=== PATIENT | male | born 1965 | race Caucasian/White ===

== ENCOUNTER 2018-12-07 18:14 | Emergency (ER) | payer MEDICARE ==
[~2018-12-07] VITALS: Ht 182.9 cm; Wt 96.2 kg
[2018-12-07] MEDS ORDERED: HYDROCODONE/APAP 10MG-325MG TAB PO NR (18:45)
[2018-12-07 19:42] LABS: BILIRUBIN,URINE NEGATIVE (NEGATIVE); CLARITY,URINE SL CLOUDY (CLEAR); COLOR,URINE YELLOW (YELLOW); KETONES,URINE NEGATIVE (NEGATIVE); LEUKOCYTE ESTERASE ,URINE NEGATIVE (NEGATIVE); NITRITE,URINE NEGATIVE (NEGATIVE); PROTEIN,URINE DIPSTICK NEGATIVE (NEGATIVE); URINE UROBILINOGEN 1 mg/dL (0.2 - 1)
[2018-12-07 19:45] LABS: AMPHETAMINES SCREEN,URINE NEGATIVE (NEGATIVE); BENZODIAZEPINES SCREEN,URINE POSITIVE (NEGATIVE); PHENCYCLIDINE SCREEN,URINE NEGATIVE (NEGATIVE)
[2018-12-07 19:54] LABS: EPITHELIAL CELLS,URINE RARE /LPF
--- NOTE | 2018-12-07 19:57 | Diagnostic Imaging Report ---
EXAMINATION: Head and cervical spine CT without contrast. HISTORY: Status post fall, head trauma, see, neck numbness, abrasion to 4 head COMPARISON: None. TECHNIQUE: Multidetector axial images were obtained without contrast from the foramen magnum to the vertex and through the cervical spine. The images were reconstructed using brain and bone algorithms. Thin section brain images were reformatted into coronal and sagittal planes. Dose modulation, iterative reconstruction, and/or weight based adjustment of the mA/kV was utilized to reduce the radiation dose to as low as reasonably achievable. HEAD CT FINDINGS: Skull/difficult/: No lytic or blastic lesions. No fractures. Parenchyma: Normal. No mass, hemorrhage or CT evidence of acute vascular insult. Brain volume: Normal for age. Ventricles: No hydrocephalus or displacement. Arteries: No density suggestive of thrombus. Dural sinuses: No abnormal density. Extra-axial spaces: No abnormal density. Foramen magnum: No mass, Chiari malformation, or basilar invagination. Sella: No obvious mass. Paranasal/mastoid sinuses: Imaged portions unremarkable. CERVICAL SPINE CT FINDINGS: Alignment:Normal alignment and lordosis. Soft tissues: Normal. Vertebrae: Normal height and density. No acute fracture, infection or neoplasm. Degenerative changes: C1-C2: Normal C2-C3: Congenital fusion of the vertebral bodies and posterior elements. No stenoses. C3-C4: Asymmetric left disc osteophyte complex formation, uncovertebral and facet arthrosis. Moderate left foraminal stenosis. C4-C5: Disc osteophyte complex formation, bilateral uncovertebral and facet arthrosis. Mild spinal canal and moderately severe bilateral foraminal stenosis. C5-C6: Mild uncovertebral arthrosis. Mild left foraminal stenosis. C6-C7: Uncovertebral arthrosis. No stenoses C7-T1: Normal IMPRESSION: Head CT: No intracranial abnormality, particularly no posttraumatic hemorrhage. Cervical spine CT: 1. No acute fractures or dislocations. 2. Chronic degenerative changes as described. Note: Acute post traumatic spinal cord, vascular or ligamentous injury cannot adequately be assessed with CT. Signed by: Dr. Ilana Diaz M.D. on 12/07/2018 7:54 PM
--- NOTE | 2018-12-07 20:28 | Diagnostic Imaging Report ---
RIGHT FEMORAL X-RAY - 2 VIEWS HISTORY: ^fall COMPARISON: None available. FINDINGS: Bones: No acute displaced fracture. Partially visualized intramedullary sherly in the proximal tibia. Osseous alignment is within normal limits. Joints: The joint spaces are well-maintained. Soft tissues: The soft tissues appear unremarkable. IMPRESSION: No acute radiographic abnormality. Signed by: Dr. Filomena Price M.D. on 12/07/2018 8:25 PM
--- NOTE | 2018-12-07 20:28 | Diagnostic Imaging Report ---
PELVIS X-RAY - 1 VIEW HISTORY: ^fall ^[id number] ^1919 COMPARISON: None available. FINDINGS: Bones: No acute displaced fracture. Osseous alignment is within normal limits. Joints: The joint spaces are well-maintained. Soft tissues: The soft tissues appear unremarkable. IMPRESSION: No acute radiographic abnormality. Signed by: Dr. Filomena Price M.D. on 12/07/2018 8:24 PM
--- NOTE | 2018-12-07 20:29 | Diagnostic Imaging Report ---
RIGHT LOWER EXTREMITY X-RAY - 2 VIEWS HISTORY: ^fall ^[id number] ^1919 COMPARISON: None available. FINDINGS: Bones: No acute displaced fracture. Status post fixation of the tibia with intramedullary sherly for a remote healed fracture of the distal tibia. Hardware is intact without loosening. Osseous alignment is within normal limits. Joints: The joint spaces are well-maintained. Soft tissues: The soft tissues appear unremarkable. IMPRESSION: No acute radiographic abnormality. Status post ORIF of the right tibia. Hardware is intact. Signed by: Dr. Filomena Price M.D. on 12/07/2018 8:26 PM
--- NOTE | 2018-12-07 20:30 | Diagnostic Imaging Report ---
RIGHT FOOT X-RAY - 3 VIEWS HISTORY: ^fall ^[id number] ^1919 COMPARISON: None available. FINDINGS: Bones: Cortical lucency within the posterior aspect of the distal tibia not well seen on tibia fibula x-ray appears to be chronic. Partially visualized intramedullary sherly in the distal tibia. No fractures in the foot. Osseous alignment is within normal limits. Joints: The joint spaces are well-maintained. Soft tissues: The soft tissues appear unremarkable. IMPRESSION: No acute radiographic abnormality. Cortical lucency within the distal posterior tibia appears to be chronic. Signed by: Dr. Filomena Price M.D. on 12/07/2018 8:27 PM
[2018-12-07 23:35] VITALS: BP 136/72
== END 2018-12-07 20:30 | disposition home or self-care (01) ==
LOC: ER 18:14
DX: M54.5 Low back pain (principal); S33.5XXA Sprain of ligaments of lumbar spine, initial encounter; S00.83XA Contusion of other part of head, initial encounter; M54.2 Cervicalgia; M79.604 Pain in right leg; W01.0XXA Fall on same level from slipping, tripping and stumbling without subsequent striking against object, initial encounter; F14.14 Cocaine abuse with cocaine-induced mood disorder; F13.14 Sedative, hypnotic or anxiolytic abuse with sedative, hypnotic or anxiolytic-induced mood disorder
CPT/HCPCS: 70450; 72125; 72170; 80307; 81001; 99283

== ENCOUNTER 2019-12-11 21:22 | Inpatient (IN) | payer MEDICARE, OTHER ==
[~2019-12-11] VITALS: Ht 182.9 cm; Wt 96.2 kg
[2019-12-11] MEDS ORDERED: LEVOFLOXACIN 750MG/D5W 150ML 150 ML IV STA (21:28)
[2019-12-11] MEDS ORDERED: SODIUM CHLORIDE 0.9% 1000ML 1,000 ML IV STA (21:28)
[2019-12-11] MEDS ORDERED: KETOROLAC TROMETHAMINE 30 MG/ML VIAL IV STA (21:28)
--- NOTE | 2019-12-11 21:44 | Emergency Department Note ---
History of Present Illnes History of Present Illness Chief Complaint: Abdominal Complaints History of Present Illness This is a 54 year old male arrives to the ED with left lower quadrant abdominal pain, states his mother has diverticulitis and he has contracted it as well. Historian: Patient Onset (how long ago): day(s) Radiation: Reports non-radiation Duration (how long): day(s) Timing of current episode: intermittent Progression: waxing and waning Chronicity: new Relieving factors: none Past Medical/Family History Physician Review I have reviewed the patient's past medical and family history. Any updates have been documented here. Past Medical History Recent Fever: No Clinical Suspicion of Infectio: No New/Unexplained Change in Ment: No Past Medical History: Hypertension, Anxiety, Depression Other Medical History: NEUROPATHY Other Last Tetanus: UNKNOWN Review of Systems Review of Systems Constitutional: Reports no symptoms EENTM: Reports no symptoms Cardiovascular: Reports no symptoms Respiratory: Reports no symptoms Gastrointestinal: Reports as per HPI, Reports abdominal pain, Reports nausea; Denies constipation, Denies diarrhea, Denies vomiting Genitourinary: Reports no symptoms Musculoskeletal: Reports no symptoms Integumentary: Reports no symptoms Neurological: Reports no symptoms Psychological: Reports no symptoms Endocrine: Reports no symptoms Hematological/Lymphatic: Reports no symptoms Physical Exam Related Data Allergies: Coded Allergies: No Known Allergies (Unverified , 12/07/18) Triage Vital Signs Vital Signs Date Time Temp Pulse Resp B/P (MAP) Pulse Ox O2 Delivery O2 Flow Rate FiO2 12/11/19 21:25 99.0 76 20 99 Room Air Vital signs reviewed: Yes Physical Exam CONSTITUTIONAL Constitutional: Present well-developed, Present well-nourished HENT HENT: Present normocephalic, Present atraumatic, Present oropharynx clear/moist, Present nose normal HENT L/R: Present left ext ear normal, Present right ext ear normal EYES Eyes: Reports PERRL, Reports conjunctivae normal NECK Neck: Present ROM normal PULMONARY Pulmonary: Present effort normal, Present breath sounds normal CARDIOVASCULAR Cardiovascular: Present regular rhythm, Present heart sounds normal, Present capillary refill normal, Present normal rate GASTROINTESTINAL Abdominal: Present soft, Present bowel sounds normal, Present tender GENITOURINARY Genitourinary: Present exam deferred SKIN Skin: Present warm, Present dry MUSCULOSKELETAL Musculoskeletal: Present ROM normal NEUROLOGICAL Neurological: Present alert, Present oriented x 3, Present no gross motor or sensory deficits PSYCHOLOGICAL Psychological: Present mood/affect normal, Present judgement normal Results Laboratory Lab results reviewed: Yes Imaging Imaging results reviewed: Yes Assessment & Plan Medical Decision Making MDM 54-year-old male arrives to the ED with left lower quadrant abdominal pain for lab work was unremarkable given patient's continued pain a CT scan was done which was concerning for diverticulitis with a small adjacent abscess. Patient was given Zosyn the ED and admitted with GI/surgical consult to be done by primary medicine team. Assessment & Plan Final Impression: (1) Abdominal pain (2) Diverticulitis Depart Disposition: HOME, SELF-CARE Last Vital Signs Date Time Temp Pulse Resp B/P (MAP) Pulse Ox O2 Delivery O2 Flow Rate FiO2 12/11/19 21:25 99.0 76 20 99 Room Air Home Meds Reported Medications Fluticasone/Umeclidin/Vilanter (Trelegy Ellipta 100-62.5-25) 1 Each Blst.w.dev, 1 INH INH DAILY 12/12/19 Atorvastatin Calcium (ATORVASTATIN CALCIUM) 20 Mg Tablet, 20 MG PO HS 12/12/19 Clonazepam (CLONAZEPAM) 2 Mg Tablet, 2 MG PO DAILY 12/12/19 Sertraline Hcl (SERTRALINE HCL) 50 Mg Tablet, 50 MG PO DAILY 12/12/19 Losartan Potassium (LOSARTAN POTASSIUM) 50 Mg Tablet, 50 MG PO DAILY 12/12/19 Medications in the ED Levofloxacin/ Dextrose 150 ml @ 100 mls/hr NOW STAT IV ; Start 12/11/19 at 21:28; Stop 12/11/19 at 22:57; Status UNV Ketorolac Tromethamine 30 mg ONCE STAT IV ; Start 12/11/19 at 21:28; Stop 12/11/19 at 21:29; Status UNV Sodium Chloride 1,000 ml @ 0 mls/hr Q0M STAT IV ; Start 12/11/19 at 21:28; Stop 12/11/19 at 21:30; Status KELLEN LEAL, Dec 11, 2019 21:44
[2019-12-11 21:49] LABS: BASOPHILS % 0.4 % (0.0-1.0); EOSINOPHILS # (AUTO) 0.2 (0.0-0.4); EOSINOPHILS % 2.7 % (0.0-6.0); HEMATOCRIT 37.1 % (38.2-49.6); LYMPHOCYTES # (AUTO) 1.8 (1.0-3.2); MEAN CORPUSCULAR HEMOGLOBIN 29.6 pg (28-32); MEAN CORPUSCULAR HGB CONC 32.3 g/dL (31-35); MEAN CORPUSCULAR VOLUME 91.6 fL (81-99); MONOCYTES # (AUTO) 0.5 (0.2-0.8); MONOCYTES % 6.3 % (4.4-11.3); NEUTROPHILS # (AUTO) 4.8 (2.1-6.9); NEUTROPHILS % 65.3 % (38.7-80.0); PLATELET COUNT 242 x10e3/uL (140-360); RED BLOOD COUNT 4.05 x10e6/uL (4.3-5.7); RED CELL DISTRIBUTION WIDTH 13.6 % (11.7-14.4)
[2019-12-11 22:03] LABS: ALANINE AMINOTRANSFERASE 14 IU/L (0-55); ALBUMIN 2.9 g/dL (3.5-5.0); ALBUMIN/GLOBULIN RATIO 0.8 (0.8-2.0); ALKALINE PHOSPHATASE 79 IU/L (40-150); ANION GAP 14.5 mmol/L (8-16); BLOOD UREA NITROGEN 6 mg/dL (7-26); BUN/CREATININE RATIO 8 (6-25); CALCIUM 9.3 mg/dL (8.4-10.2); CARBON DIOXIDE 24 mmol/L (22-29); CHLORIDE 106 mmol/L (98-107); CLARITY,URINE CLEAR (CLEAR); CREATININE, SERUM 0.75 mg/dL (0.72-1.25); EST GLOMERULAR FILTRATION RATE > 60 ML/MIN (60-); GLUCOSE 118 mg/dL (74-118); POTASSIUM 3.5 mmol/L (3.5-5.1); SODIUM 141 mmol/L (136-145)
[2019-12-11 22:04] LABS: BILIRUBIN,URINE SMALL (NEGATIVE); COLOR,URINE AMBER (YELLOW); KETONES,URINE NEGATIVE (NEGATIVE); LEUKOCYTE ESTERASE ,URINE NEGATIVE (NEGATIVE); NITRITE,URINE NEGATIVE (NEGATIVE); PROTEIN,URINE DIPSTICK NEGATIVE (NEGATIVE); URINE UROBILINOGEN 0.2 mg/dL (0.2 - 1)
[2019-12-11 22:05] LABS: BACTERIA,URINE FEW /HPF; EPITHELIAL CELLS,URINE MODERATE /LPF; MUCUS,URINE MODERATE (RARE); WBC,URINE (MAN) 0-5 /HPF (0-5)
[2019-12-11] MEDS ORDERED: SODIUM CHLORIDE 0.9% 50ML 50 ML ONE (23:48)
[2019-12-11] MEDS ORDERED: IOPAMIDOL 370 MG/ML 200 ML INFUS..BTL INJ ONE (23:48)
[2019-12-12] MEDS ORDERED: PIPER-TAZ 3.375 GM 50 ML IV STA (00:47)
--- NOTE | 2019-12-12 00:54 | Diagnostic Imaging Report ---
EXAM: CT Abdomen and Pelvis WITH contrast INDICATION: Left lower quadrant abdominal pain. COMPARISON: None. TECHNIQUE: Abdomen and pelvis were scanned utilizing a multidetector helical scanner from the lung base to the pubic symphysis after administration of IV contrast. Coronal and sagittal reformations were obtained. Routine protocol was performed. Scan was performed when during portal venous phase. IV CONTRAST: 150 mL of Omnipaque 300 ORAL CONTRAST: Water RADIATION DOSE: Total DLP: 717.01 mGy*cm Estimated effective dose: (DLP x 0.015 x size factor) mSv COMPLICATIONS: None FINDINGS: LINES and TUBES: None. LOWER THORAX: Unremarkable HEPATOBILIARY: The liver is diffuse hypodense compared to the spleen, consistent with diffuse hepatic diffuse hepatic steatosis. Mild hepatomegaly. No focal hepatic lesions. No biliary ductal dilation. GALLBLADDER: No radio-opaque stones or sludge. No wall thickening. SPLEEN: No splenomegaly. PANCREAS: No focal masses or ductal dilatation. ADRENALS: No adrenal nodules KIDNEYS/URETERS: Kidneys enhance symmetrically. No hydronephrosis. 2.7 cm parapelvic cyst. No stones. GI TRACT: No bowel dilatation to suggest obstruction. There is acute sigmoid diverticulitis involving the proximal sigmoid colon, with extensive surrounding inflammatory changes, with a very small air-fluid collection on image 68 series 2 suggestive of early abscess formation. There is also small pockets of free air adjacent to the sigmoid colon as seen on image [id number] without distant pneumoperitoneum at this time.. Appendix is normal. PELVIC ORGANS/BLADDER: Unremarkable. LYMPH NODES: No lymphadenopathy. VESSELS: Unremarkable. PERITONEUM / RETROPERITONEUM: No free air or fluid. BONES: Bilateral L5 spinal lysis without spondylolisthesis. Scattered degenerative changes. SOFT TISSUES: Unremarkable. IMPRESSION: 1. Acute sigmoid diverticulitis with extensive surrounding inflammatory changes, small volume adjacent free air, and early small volume abscess. Signed by: Dr. Etelvina Nicholson M.D. on 12/12/2019 12:51 AM
[2019-12-12 01:32] LABS: AMPHETAMINES SCREEN,URINE NEGATIVE (NEGATIVE); PHENCYCLIDINE SCREEN,URINE NEGATIVE (NEGATIVE)
[2019-12-12 01:33] LABS: BENZODIAZEPINES SCREEN,URINE POSITIVE (NEGATIVE)
[2019-12-12] MEDS ORDERED: SERTRALINE HCL50 MG PO (01:55)
[2019-12-12] MEDS ORDERED: CLONAZEPAM2 MG PO (01:55)
[2019-12-12] MEDS ORDERED: LOSARTAN POTASS50 MG PO (01:55)
[2019-12-12] MEDS ORDERED: ATORVASTATIN CA20 MG PO (01:55)
[2019-12-12] MEDS ORDERED: TRELEGY ELLIPT1 EACH INH (01:55)
[2019-12-12 04:40] VITALS: BP 165/97
[2019-12-12] MEDS ORDERED: ONDANSETRON HCL INJ 2MG/ML 2ML 2 MG/ML VIAL IV PRN (05:00)
[2019-12-12] MEDS: MORPHINE SULFATE INJ 4 MG/ML INJ 1ML IV PRN ×5 (05:56→22:15)
--- NOTE | 2019-12-12 07:17 | NUR ---
REPORT GIVEN TO DAYSHIFT NURSE. RESTING IN BED. ALERT AND ORIENTED. NO SIGNS IV INFILTRATION. BED LOCKED AND IN LOW POSITION. CALL LIGHT WITHIN REACH. BED ALARM ACTIVATED.
[2019-12-12 08:00] VITALS: BP 116/83
[2019-12-12 08:56] VITALS: BP 116/83
[2019-12-12] MEDS ORDERED: CLONAZEPAM 2 MG PO SCH (09:00)
[2019-12-12] MEDS: SERTRALINE HCL 50 MG TAB PO SCH (09:49)
[2019-12-12] MEDS: CLONAZEPAM 1 MG TAB PO SCH (09:49)
[2019-12-12 11:49] VITALS: BP 156/96
[2019-12-12] MEDS ORDERED: D5.45%NS/KCL 20MEQ 1,000 ML IV ONE (15:45)
[2019-12-12] MEDS ORDERED: ACETAMINOPHEN 325 MG TAB PO PRN (16:30)
[2019-12-12] MEDS ORDERED: TEMAZEPAM 7.5 MG CAP PO PRN (16:30)
[2019-12-12] MEDS ORDERED: HYDRALAZINE HCL 20 MG/ML VIAL IV PRN (16:30)
[2019-12-12] MEDS ORDERED: POLYETHYLENE GLYCOL 3350 17 GM PACK PO PRN (16:30)
[2019-12-12 16:32] VITALS: BP 149/90
[2019-12-12] MEDS: FAMOTIDINE 20 MG/2 ML VIAL IV SCH (17:14)
[2019-12-12] MEDS: DOCUSATE SODIUM 100 MG CAP PO SCH (17:14)
[2019-12-12 20:00] VITALS: BP 152/100
[2019-12-12] MEDS ORDERED: TEMAZEPAM 15 MG CAP PO PRN (21:00)
[2019-12-12] MEDS ORDERED: METRONIDAZOLE 750MG/NS 150ML 150 ML IV ONE (21:30)
--- NOTE | 2019-12-12 21:54 | NUR ---
Spoke with Dr Schwab regarding new consult for acute diverticulitis with microperforation, early small abscess, free air. Will see patient. No new orders.
[2019-12-12] MEDS: LACTATED RINGER'S 1,000 ML INJ SCH (22:38)
[2019-12-13] VITALS (7 sets, daily range): BP systolic 124–156; BP diastolic 64–94
[2019-12-13] MEDS ORDERED: METRONIDAZOLE 500MG/NS 100ML 100 ML IV SCH
[2019-12-13] MEDS: LEVOFLOXACIN 500MG/D5W 100ML 100 ML IV SCH ×2 (00:44→20:36)
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
[2019-12-13] MEDS: METRONIDAZOLE 500MG/NS 100ML 100 ML IV SCH ×4 (04:45→23:38)
[2019-12-13] MEDS: MORPHINE SULFATE INJ 4 MG/ML INJ 1ML IV PRN ×5 (04:45→21:37)
[2019-12-13 05:00] LABS: BASOPHILS # (AUTO) 0.1 (0.0-0.1); BASOPHILS % 0.7 % (0.0-1.0); EOSINOPHILS # (AUTO) 0.2 (0.0-0.4); EOSINOPHILS % 2.5 % (0.0-6.0); HEMATOCRIT 37.9 % (38.2-49.6); HEMOGLOBIN 12.1 g/dL (14.0-18.0); LYMPHOCYTES % 28.2 % (18.0-39.1); MEAN CORPUSCULAR HEMOGLOBIN 30.5 pg (28-32); MEAN CORPUSCULAR HGB CONC 31.9 g/dL (31-35); MEAN CORPUSCULAR VOLUME 95.5 fL (81-99); MONOCYTES # (AUTO) 0.6 (0.2-0.8); MONOCYTES % 8.7 % (4.4-11.3); NEUTROPHILS # (AUTO) 4.3 (2.1-6.9); NEUTROPHILS % 59.2 % (38.7-80.0); PLATELET COUNT 246 x10e3/uL (140-360); RED BLOOD COUNT 3.97 x10e6/uL (4.3-5.7); RED CELL DISTRIBUTION WIDTH 13.7 % (11.7-14.4)
[2019-12-13] MEDS: LACTATED RINGER'S 1,000 ML INJ SCH ×3 (05:48→18:31)
[2019-12-13 05:52] LABS: ALANINE AMINOTRANSFERASE 14 IU/L (0-55); ALBUMIN/GLOBULIN RATIO 0.8 (0.8-2.0); ALKALINE PHOSPHATASE 72 IU/L (40-150); ANION GAP 12.8 mmol/L (8-16); BLOOD UREA NITROGEN 6 mg/dL (7-26); BUN/CREATININE RATIO 8 (6-25); CALCIUM 9.2 mg/dL (8.4-10.2); CARBON DIOXIDE 23 mmol/L (22-29); CHLORIDE 107 mmol/L (98-107); CREATININE, SERUM 0.76 mg/dL (0.72-1.25); EST GLOMERULAR FILTRATION RATE > 60 ML/MIN (60-); GLUCOSE 87 mg/dL (74-118); POTASSIUM 3.8 mmol/L (3.5-5.1); SODIUM 139 mmol/L (136-145)
[2019-12-13 06:12] LABS: CHOL/HDL RATIO 4.3 (3.9-4.7); MAGNESIUM 1.9 MG/DL (1.3-2.1); PHOSPHORUS 3.5 MG/DL (2.3-4.7)
--- NOTE | 2019-12-13 07:15 | NUR ---
Bedside report and walking rounds completed with oncoming nurse. Patient in bed with call light within reach. No issues or concerns noted.
--- NOTE | 2019-12-13 07:16 | NUR ---
received change of shift report from PM nurse. all safety measures in place. pt in stable condition.
[2019-12-13 07:37] LABS: THYROID STIMULATING HORMONE 0.32 uIU/mL (0.350-4.940)
[2019-12-13] MEDS: LOSARTAN POTASSIUM 25 MG TAB PO SCH (08:53)
[2019-12-13] MEDS: SERTRALINE HCL 50 MG TAB PO SCH (08:53)
[2019-12-13] MEDS: CLONAZEPAM 1 MG TAB PO SCH (08:53)
[2019-12-13] MEDS: FAMOTIDINE 20 MG/2 ML VIAL IV SCH ×2 (08:53→16:34)
[2019-12-13] MEDS: DOCUSATE SODIUM 100 MG CAP PO SCH ×2 (08:53→16:34)
[2019-12-13] MEDS ORDERED: NON-FORMULARY MEDICATION (Fluticasone/Umeclidin/Vilanter (Trelegy Ellipta 100-62.5-25) 1 I INH SCH ×2 (09:00)
[2019-12-13] MEDS ORDERED: NON-FORMULARY MEDICATION (Losartan Potassium 50 MG) PO SCH (09:00)
--- NOTE | 2019-12-13 13:33 | NUR ---
spoke with Dr. Schwab at bedside who states pt can have water and ice at this time.
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
--- NOTE | 2019-12-13 19:07 | NUR ---
CHANGE OF SHIFT REPORT GIVEN TO PM NURSE. PT AWAKE, ALERT, NO COMPLAINTS AT THIS TIME, IN STABLE CONDITION.
--- NOTE | 2019-12-13 23:50 | Progress Note ---
DATE: CONSULTING PHYSICIANS: 1. Joni Schwab MD. 2. Sherman Valencia MD. SUBJECTIVE: The patient still has some abdominal pain, although it has much improved. It is currently rated 3/10 on a 0-10 pain scale. He has no complaints of diarrhea except one time this morning, had a small bowel movement. Heart rate has been as low as 51 this morning. Blood pressure 151/87 at that time. OBJECTIVE: VITAL SIGNS: Temperature 97.4, pulse 60, blood pressure 131/64, respirations 18, and oxygen saturation 98%. GENERAL: No acute distress, lying supine in bed, relaxing, much less anxious than when I saw last night. LUNGS: Clear to auscultation. Diminished bases. Respiratory pattern, even and nonlabored. No supplemental oxygen. HEENT: EOMI. NECK: Supple. No thyromegaly or JVD noted. CARDIOVASCULAR: Regular rate and rhythm. No murmur. Currently, he is on lactated Ringer's at 125 mL an hour into a peripheral IV. ABDOMEN: Bowel sounds positive. Soft, nondistended. No guarding. EXTREMITIES: Without pitting edema. No clubbing, cyanosis, or signs or symptoms of DVT. Left elbow has a bursa. NEUROLOGIC: GCS 15 nonfocal. LABORATORY DATA: WBCs 7.24, hemoglobin 12.1, hematocrit 37.9, platelets 246. Sodium 139, potassium 3.8, chloride 107, CO2 of 23, anion gap 12.8, BUN 6, creatinine 0.76, estimated GFR greater than 60, glucose 87, calcium 9.2, hemoglobin A1c 5.1%, phosphorus 3.5, magnesium 1.9, total bilirubin 0.2, AST 12, ALT 14, alkaline phosphatase 72, total protein 6.9, albumin 3.0. Triglycerides 110, cholesterol 120, LDL 70, HDL 28, lipase 22. TSH 0.320. Coronavirus PCR collected 12/11 is still pending. No new imaging. ASSESSMENT AND PLAN: 1. Acute sigmoid diverticulitis with microperforation of the bowel and early small abscess. Surgery and Gastroenterology following. WBCs 7.24 (7.35), afebrile. He has been advanced to a clear liquid diet by Surgery. Continue IV antibiotics, Levaquin and Flagyl. Subjectively, very much improved. 2. Acute abdominal pain secondary to first diagnosis. Continue pain control with morphine any diet advancement per other surgery or gastroenterology. 3. Controlled hypertension. Blood pressure 131/64 hypertension yesterday was likely secondary to his abdominal pain. Continue home dose of losartan and p.r.n. IV hydralazine. 4. Severe anxiety. Continue home medications, sertraline and clonazepam. The patient stood up during most of my history and physical yesterday, was very anxious with some pacing in the room. Today, he is very much more relaxed, far less anxiety. 5. Major depression. Continue home dose of Zoloft. 6. Chronic obstructive pulmonary disease without acute exacerbation. 7. Continue DuoNebs every 4 hours p.r.n. for any wheezing or shortness of breath and continue home dose of Trelegy Ellipta. 8. Chronic pain syndrome with a history of multiple falls and mishaps. Continue pain control regimen. 9. Hyperlipidemia. Resume statin when tolerating p.o. better. 10. Prophylaxis IV Pepcid ambulatory. 11. Billing code 90071. Time spent 35 minutes. Dictated by Bob Spring NP MD BOB Bower/JENNIFER /[id number]
[2019-12-14] VITALS: BP_SYST 149; BP_DIAS 92; BP_DIAS 94
[2019-12-14] MEDS: MORPHINE SULFATE INJ 4 MG/ML INJ 1ML IV PRN ×2 (03:18→07:50)
[2019-12-14 04:00] VITALS: BP 164/95
[2019-12-14] MEDS: METRONIDAZOLE 500MG/NS 100ML 100 ML IV SCH ×2 (04:35→09:30)
[2019-12-14] MEDS: LACTATED RINGER'S 1,000 ML INJ SCH (04:35)
[2019-12-14 04:49] LABS: BASOPHILS % 0.4 % (0.0-1.0); EOSINOPHILS # (AUTO) 0.1 (0.0-0.4); HEMATOCRIT 36.3 % (38.2-49.6); HEMOGLOBIN 11.4 g/dL (14.0-18.0); LYMPHOCYTES # (AUTO) 1.8 (1.0-3.2); LYMPHOCYTES % 25.9 % (18.0-39.1); MEAN CORPUSCULAR HEMOGLOBIN 29.5 pg (28-32); MEAN CORPUSCULAR HGB CONC 31.4 g/dL (31-35); MONOCYTES # (AUTO) 0.4 (0.2-0.8); MONOCYTES % 6.1 % (4.4-11.3); NEUTROPHILS # (AUTO) 4.5 (2.1-6.9); NEUTROPHILS % 65.2 % (38.7-80.0); PLATELET COUNT 244 x10e3/uL (140-360); RED BLOOD COUNT 3.86 x10e6/uL (4.3-5.7); RED CELL DISTRIBUTION WIDTH 13.8 % (11.7-14.4)
[2019-12-14 05:07] LABS: ALANINE AMINOTRANSFERASE 13 IU/L (0-55); ALBUMIN 2.8 g/dL (3.5-5.0); ALBUMIN/GLOBULIN RATIO 0.8 (0.8-2.0); ALKALINE PHOSPHATASE 64 IU/L (40-150); ANION GAP 13.9 mmol/L (8-16); BLOOD UREA NITROGEN 5 mg/dL (7-26); BUN/CREATININE RATIO 7 (6-25); CALCIUM 8.8 mg/dL (8.4-10.2); CARBON DIOXIDE 23 mmol/L (22-29); CHLORIDE 108 mmol/L (98-107); CREATININE, SERUM 0.73 mg/dL (0.72-1.25); EST GLOMERULAR FILTRATION RATE > 60 ML/MIN (60-); GLUCOSE 81 mg/dL (74-118); POTASSIUM 3.9 mmol/L (3.5-5.1); SODIUM 141 mmol/L (136-145)
[2019-12-14 08:26] VITALS: BP_SYST 135; BP_SYST 149; BP_DIAS 81; BP_DIAS 95
[2019-12-14] MEDS: LOSARTAN POTASSIUM 25 MG TAB PO SCH (09:00)
[2019-12-14] MEDS: SERTRALINE HCL 50 MG TAB PO SCH (09:00)
[2019-12-14] MEDS: FAMOTIDINE 20 MG/2 ML VIAL IV SCH (09:00)
[2019-12-14] MEDS: CLONAZEPAM 1 MG TAB PO SCH (09:00)
[2019-12-14] MEDS: DOCUSATE SODIUM 100 MG CAP PO SCH (09:00)
[2019-12-14] MEDS ORDERED: LEVAQUIN500 MG PO (09:06)
[2019-12-14] MEDS ORDERED: TYLENOL WITH C1 EACH PO (09:06)
[2019-12-14] MEDS ORDERED: METRONIDAZOLE500 MG PO (09:06)
[2019-12-14] MEDS ORDERED: HYDROCODONE/APAP 5MG-325MG TAB PO PRN (09:15)
[2019-12-14] MEDS ORDERED: MORPHINE SULFATE 2 MG/ML SYR 1ML IV PRN ×2 (09:15)
--- NOTE | 2019-12-14 09:18 | NUR ---
CHELY TELLEZ HER TO SEE PT.
[2019-12-14 10:52] VITALS: BP 149/96
[2019-12-14] MEDS ORDERED: ONDANSETRON HCL 4 MG ORAL DISINTEGRATING TAB PO PRN (11:30)
--- NOTE | 2019-12-14 11:30 | NUR ---
PT DISCHARGES AT THIS TIME. IV REMOVED EARLIER. DISCHARGE INSTRUCTIONS GIVEN ALONG PRESCRIPTION. PT ACCOMPANIED OUT BY STAFF.
[2019-12-14] MEDS ORDERED: MORPHINE SULFATE INJ 4 MG/ML INJ 1ML IV PRN (13:00)
[2019-12-14] MEDS ORDERED: FAMOTIDINE 20 MG TAB PO SCH (16:30)
[2019-12-14] MEDS ORDERED: ATORVASTATIN 20 MG TAB PO SCH (21:00)
--- NOTE | 2019-12-15 04:11 | Discharge Summary ---
ADMISSION DIAGNOSES: 1. Acute diverticulitis with microperforation. 2. Hypertension. 3. Anxiety. 4. Major depression. 5. Chronic obstructive pulmonary disease without acute exacerbation. 6. Chronic pain. 7. Hyperlipidemia. DISCHARGE DIAGNOSES: 1. Acute diverticulitis with microperforation. 2. Hypertension. 3. Anxiety. 4. Major depression. 5. Chronic obstructive pulmonary disease without acute exacerbation. 6. Chronic pain. 7. Hyperlipidemia. HISTORY: Hypertension, severe anxiety, major depression, neuropathy, hyperlipidemia, chronic venous insufficiency, RLS, melanoma cancer of the lower back, broken collarbone. SURGICAL HISTORY: Right hand reattachment status post elevator accident in 2002, umbilical hernia repair, right tibia and fibula sherly and pin, cyst removal of the right upper chest. FAMILY HISTORY: The patient's father had a heart attack and a stroke. The patient's mom had cancer. SOCIAL HISTORY: Occasional alcohol use. The patient smoked 40 packs per year with quitting intermittently. The patient denies drug use, but urine drug screen was positive for benzo and cannabinoids as well as opiates. HOSPITAL COURSE: A 54-year-old male admits with left lower quadrant abdominal pain that began 2 days ago. At this time, he was having nausea and vomiting. He was recently at [facility], but left AMA. He says they did not tell him about the microperforation of the bowel. On admission, CT of the abdomen and pelvis showed acute sigmoid diverticulitis with extensive surrounding inflammatory changes, small volume adjacent free air and early small volume abscess. Surgery and GI were consulted. The patient was started on Levaquin and Flagyl. He remained afebrile and white count was within normal limits. His diet was advanced and pain was controlled. He was very adamant about discharging home today. He was discharged with new prescription for Flagyl, Levaquin, and Tylenol No. 3. He was advised to follow up with primary care in 1 to 2 weeks. The patient understands discharge instructions and agrees to plan. Vital signs stable. The patient afebrile. Dictated by Fanny Yo NP MD SEBAS Bower/MODL /[id number]
== END 2019-12-14 11:30 | disposition home or self-care (01) | DRG 392 ==
LOC: ER 21:28 → ERHOLD 12-12 01:08 → MED/SURG 12-12 04:31
PROVIDERS: ADMIT Internal Medicine; ATTEND Internal Medicine
DX: K57.20 Diverticulitis of large intestine with perforation and abscess without bleeding (principal); I10 Essential (primary) hypertension; F32.9 Major depressive disorder, single episode, unspecified; F41.9 Anxiety disorder, unspecified; G89.4 Chronic pain syndrome; E78.5 Hyperlipidemia, unspecified; Z91.81 History of falling; J44.9 Chronic obstructive pulmonary disease, unspecified; Z82.49 Family history of ischemic heart disease and other diseases of the circulatory system; Z82.3 Family history of stroke; Z87.891 Personal history of nicotine dependence; F12.90 Cannabis use, unspecified, uncomplicated; F15.90 Other stimulant use, unspecified, uncomplicated; Z72.89 Other problems related to lifestyle; Z11.59 Encounter for screening for other viral diseases
CPT/HCPCS: 36415; 74177; 80053; 80061; 80307; 81001; 83036; 83690; 83735; 84100; 84443; 85025; 99284; J0360; J1885; J1956; J2270; J2405; J2543; J7030; J7121; Q9967; U0002

== ENCOUNTER 2022-09-17 04:56 | Inpatient (IN) | payer MEDICARE, OTHER ==
[~2022-09-17] VITALS: Ht 182.9 cm; Wt 111.6 kg
[2022-09-17 00:30] VITALS: BP 128/83
[2022-09-17 04:20] VITALS: BP 136/88
[~2022-09-17 04:56] MED LIST: ATORVASTATIN CA20 MG PO; BENZONATATE100 MG PO; CLONAZEPAM2 MG PO; DOXYCYCLINE MO100 MG PO; LEVAQUIN500 MG PO; LOSARTAN POTASS50 MG PO; MEDROL DOSE PACK; METRONIDAZOLE500 MG PO; OLANZAPINE15 MG PO; SERTRALINE HCL50 MG PO; TRELEGY ELLIPT1 EACH INH; TYLENOL WITH C1 EACH PO; ZOLOFT50 MG PO; ZOLPIDEM TARTRAT5 MG PO
[2022-09-17 05:58] LABS: ALBUMIN 3.5 g/dL (3.5-5.0); ALBUMIN/GLOBULIN RATIO 1.2 (0.8-2.0); ANION GAP 18.6 mmol/L (8-16); BASOPHILS % 0.4 % (0.0-1.0); CALCIUM 8.3 mg/dL (8.4-10.2); CREATININE, SERUM 0.75 mg/dL (0.72-1.25); EOSINOPHILS # (AUTO) 0.1 (0.0-0.4); EOSINOPHILS % 1.5 % (0.0-6.0); HEMOGLOBIN 13.3 g/dL (14.0-18.0); MEAN CORPUSCULAR HEMOGLOBIN 30.1 pg (28-32); MONOCYTES # (AUTO) 0.6 (0.2-0.8); MONOCYTES % 8.5 % (4.4-11.3); NEUTROPHILS # (AUTO) 5.5 (2.1-6.9); NEUTROPHILS % 75.2 % (38.7-80.0); PLATELET COUNT 198 x10e3/uL (140-360); POTASSIUM 3.6 mmol/L (3.5-5.1); RED BLOOD COUNT 4.42 x10e6/uL (4.3-5.7); RED CELL DISTRIBUTION WIDTH 13.4 % (11.7-14.4)
[2022-09-17] MEDS ORDERED: CEFTRIAXONE 1 GM VIAL IV ONE (06:15)
[2022-09-17] MEDS ORDERED: ASPIRIN 81 MG CHEW TAB PO ONE ×2 (06:15→06:30)
[2022-09-17] MEDS ORDERED: SODIUM CHLORIDE FLUSH 10 ML SYR INJ PRN (06:30)
[2022-09-17] MEDS ORDERED: METHYLPREDNISOLONE SOD SUCC 125 MG/2ML VIAL IV ONE (06:30)
[2022-09-17] MEDS ORDERED: ALBUTEROL/IPRATROPIUM 3 ML NEB NEB PRN ×2 (06:30→10:15)
[2022-09-17 06:34] LABS: CREATINE KINASE MB 3.7 ng/mL (0-5.0)
[2022-09-17] MEDS ORDERED: ALBUTEROL SULF 0.083% NEB SOLN 3 ML NEB NEB PRN (06:45)
[2022-09-17] MEDS ORDERED: IPRATROPIUM BROMIDE 0.02% 2.5 ML NEB NEB PRN (06:45)
[2022-09-17] MEDS ORDERED: HYDRALAZINE HCL 20 MG/ML VIAL IV PRN (09:30)
[2022-09-17] MEDS ORDERED: HYDRALAZINE HCL 20 MG/ML VIAL IV ONE (10:00)
[2022-09-17] MEDS ORDERED: CHLORDIAZEPOXIDE HCL 10 MG CAP PO PRN (10:15)
[2022-09-17] MEDS ORDERED: ALBUTEROL/IPRATROPIUM 3 ML NEB NEB SCH (10:15)
[2022-09-17] MEDS ORDERED: CHLORDIAZEPOXIDE HCL 25 MG CAP ONE (10:18)
[2022-09-17] MEDS: CHLORDIAZEPOXIDE HCL 25 MG CAP PO SCH ×2 (10:38→17:44)
[2022-09-17] MEDS ORDERED: IOPAMIDOL 370 MG/ML 100 ML INFUS..BTL INJ ONE (11:01)
[2022-09-17] MEDS ORDERED: CHLORDIAZEPOXIDE HCL 10 MG CAP PO SCH (12:00)
[2022-09-17] MEDS ORDERED: NICOTINE 21 MG/EA PATCH TOP PRN (12:30)
[2022-09-17] MEDS ORDERED: METHYLPREDNISOLONE SOD SUCC 40 MG/ML VIAL 1ML IV SCH ×2 (14:00→17:00)
[2022-09-17 15:34] LABS: CREATINE KINASE MB 3.1 ng/mL (0-5.0)
[2022-09-17] MEDS: ALBUTEROL/IPRATROPIUM 3 ML NEB NEB SCH (17:20)
[2022-09-17 18:36] VITALS: BP 143/74
[2022-09-17 20:30] VITALS: BP_SYST 128; BP_SYST 143; BP_DIAS 74; BP_DIAS 83
[2022-09-17 21:00] VITALS: BP 143/74
[2022-09-17] MEDS: HEPARIN SOD (PORCINE) 5,000 UNIT/ML VIAL SC SCH (21:00)
[2022-09-17 21:28] VITALS: BP 137/88
[2022-09-17] MEDS: ATORVASTATIN 20 MG TAB PO SCH (22:24)
[2022-09-17] MEDS: ZOLPIDEM TARTRATE 5 MG TAB PO SCH (22:24)
[2022-09-17] MEDS: OLANZAPINE 5 MG TAB PO SCH (22:24)
[2022-09-18] VITALS (8 sets, daily range): BP systolic 100–123; BP diastolic 60–82
[2022-09-18] MEDS: ALBUTEROL/IPRATROPIUM 3 ML NEB NEB SCH ×4 (00:30→20:05)
[2022-09-18] MEDS: CHLORDIAZEPOXIDE HCL 25 MG CAP PO SCH ×5 (00:51→23:33)
[2022-09-18 05:48] LABS: HEMATOCRIT 36.3 % (38.2-49.6); HEMOGLOBIN 12.3 g/dL (14.0-18.0); LYMPHOCYTES # (AUTO) 0.7 (1.0-3.2); LYMPHOCYTES % 5.6 % (18.0-39.1); MEAN CORPUSCULAR HEMOGLOBIN 29.7 pg (28-32); MEAN CORPUSCULAR HGB CONC 33.9 g/dL (31-35); MEAN CORPUSCULAR VOLUME 87.7 fL (81-99); MONOCYTES # (AUTO) 0.5 (0.2-0.8); MONOCYTES % 4.3 % (4.4-11.3); NEUTROPHILS # (AUTO) 10.8 (2.1-6.9); NEUTROPHILS % 89.6 % (38.7-80.0); PLATELET COUNT 225 x10e3/uL (140-360); RED BLOOD COUNT 4.14 x10e6/uL (4.3-5.7); RED CELL DISTRIBUTION WIDTH 13.9 % (11.7-14.4)
[2022-09-18 06:04] LABS: ANION GAP 14.8 mmol/L (8-16); CALCIUM 9.1 mg/dL (8.4-10.2); CREATININE, SERUM 0.75 mg/dL (0.72-1.25); POTASSIUM 3.8 mmol/L (3.5-5.1)
[2022-09-18 06:24] LABS: CREATINE KINASE 126 IU/L (30-200)
[2022-09-18] MEDS: NON-FORMULARY MEDICATION (Fluticasone/Umeclidin/Vilanter (Trelegy Ellipta 100-62.5-25) 1 I INH SCH (09:00)
[2022-09-18] MEDS: THIAMINE HCL 100 MG TAB PO SCH (09:22)
[2022-09-18] MEDS: CEFTRIAXONE 2 GM in SODIUM CHLORIDE 0.9% 100 ML IV SCH (09:23)
[2022-09-18] MEDS: AZITHROMYCIN 250 MG TAB PO SCH (09:23)
[2022-09-18] MEDS: LOSARTAN POTASSIUM 25 MG TAB PO SCH (09:23)
[2022-09-18] MEDS: SERTRALINE HCL 50 MG TAB PO SCH (09:24)
[2022-09-18] MEDS: HEPARIN SOD (PORCINE) 5,000 UNIT/ML VIAL SC SCH ×2 (09:27→21:05)
[2022-09-18] MEDS: ZOLPIDEM TARTRATE 5 MG TAB PO SCH (21:04)
[2022-09-18] MEDS: ATORVASTATIN 20 MG TAB PO SCH (21:04)
[2022-09-18] MEDS: OLANZAPINE 5 MG TAB PO SCH (21:04)
[2022-09-19] VITALS (8 sets, daily range): BP systolic 112–140; BP diastolic 58–85
[2022-09-19] MEDS: ALBUTEROL/IPRATROPIUM 3 ML NEB NEB SCH ×5 (03:15→19:42)
[2022-09-19] MEDS: CHLORDIAZEPOXIDE HCL 25 MG CAP PO SCH ×3 (05:24→17:03)
[2022-09-19] MEDS ORDERED: METHYLPREDNISOLONE SOD SUCC 40 MG/ML VIAL 1ML IV SCH (07:30)
[2022-09-19] MEDS: METHYLPREDNISOLONE SOD SUCC 40 MG/ML VIAL 1ML IV SCH (08:44)
[2022-09-19] MEDS: CEFTRIAXONE 2 GM in SODIUM CHLORIDE 0.9% 100 ML IV SCH (08:44)
[2022-09-19] MEDS: THIAMINE HCL 100 MG TAB PO SCH (08:45)
[2022-09-19] MEDS: LOSARTAN POTASSIUM 25 MG TAB PO SCH (08:46)
[2022-09-19] MEDS: AZITHROMYCIN 250 MG TAB PO SCH (08:46)
[2022-09-19] MEDS: SERTRALINE HCL 50 MG TAB PO SCH (08:48)
[2022-09-19] MEDS: HEPARIN SOD (PORCINE) 5,000 UNIT/ML VIAL SC SCH ×2 (08:48→20:59)
[2022-09-19] MEDS: NON-FORMULARY MEDICATION (Fluticasone/Umeclidin/Vilanter (Trelegy Ellipta 100-62.5-25) 1 I INH SCH (09:00)
[2022-09-19] MEDS: ZOLPIDEM TARTRATE 5 MG TAB PO SCH (20:54)
[2022-09-19] MEDS: OLANZAPINE 5 MG TAB PO SCH (20:54)
[2022-09-19] MEDS: ATORVASTATIN 20 MG TAB PO SCH (20:55)
[2022-09-20] MEDS: CHLORDIAZEPOXIDE HCL 25 MG CAP PO SCH ×2 (00:16→06:02)
[2022-09-20] MEDS: ALBUTEROL/IPRATROPIUM 3 ML NEB NEB SCH ×2 (00:47→08:04)
[2022-09-20 04:00] VITALS: BP 108/66
[2022-09-20 04:53] LABS: BASOPHILS % 0.2 % (0.0-1.0); EOSINOPHILS # (AUTO) 0.1 (0.0-0.4); EOSINOPHILS % 0.6 % (0.0-6.0); HEMATOCRIT 34.5 % (38.2-49.6); HEMOGLOBIN 11.2 g/dL (14.0-18.0); LYMPHOCYTES # (AUTO) 1.7 (1.0-3.2); LYMPHOCYTES % 20.4 % (18.0-39.1); MEAN CORPUSCULAR HEMOGLOBIN 29.7 pg (28-32); MEAN CORPUSCULAR HGB CONC 32.5 g/dL (31-35); MEAN CORPUSCULAR VOLUME 91.5 fL (81-99); MONOCYTES # (AUTO) 0.4 (0.2-0.8); NEUTROPHILS # (AUTO) 6.2 (2.1-6.9); NEUTROPHILS % 73.4 % (38.7-80.0); PLATELET COUNT 200 x10e3/uL (140-360); RED BLOOD COUNT 3.77 x10e6/uL (4.3-5.7); RED CELL DISTRIBUTION WIDTH 14.4 % (11.7-14.4)
[2022-09-20 05:14] LABS: ANION GAP 13.7 mmol/L (8-16); CALCIUM 9.2 mg/dL (8.4-10.2); CREATININE, SERUM 0.73 mg/dL (0.72-1.25); POTASSIUM 3.7 mmol/L (3.5-5.1)
[2022-09-20] MEDS: CEFTRIAXONE 2 GM in SODIUM CHLORIDE 0.9% 100 ML IV SCH (08:26)
[2022-09-20] MEDS: THIAMINE HCL 100 MG TAB PO SCH (08:27)
[2022-09-20] MEDS: METHYLPREDNISOLONE SOD SUCC 40 MG/ML VIAL 1ML IV SCH (08:27)
[2022-09-20] MEDS: AZITHROMYCIN 250 MG TAB PO SCH (08:27)
[2022-09-20 08:28] VITALS: BP 135/87
[2022-09-20] MEDS: LOSARTAN POTASSIUM 25 MG TAB PO SCH (08:28)
[2022-09-20] MEDS: SERTRALINE HCL 50 MG TAB PO SCH (08:28)
[2022-09-20] MEDS: HEPARIN SOD (PORCINE) 5,000 UNIT/ML VIAL SC SCH (08:31)
[2022-09-20] MEDS: NON-FORMULARY MEDICATION (Fluticasone/Umeclidin/Vilanter (Trelegy Ellipta 100-62.5-25) 1 I INH SCH (09:00)
[2022-09-20 09:12] VITALS: BP 135/87
[2022-09-20] MEDS ORDERED: AUGMENTIN 500-1 EACH PO (10:42)
[2022-09-20] MEDS ORDERED: medro dose pack (10:46)
== END 2022-09-20 11:18 | disposition home or self-care (01) | DRG 190 ==
LOC: ER 05:01 → ERHOLD 06:25 → MED/SURG 18:36 → OBSVTOIN 09-19 08:33
PROVIDERS: ADMIT Internal Medicine; ATTEND Internal Medicine
DX: J44.0 Chronic obstructive pulmonary disease with (acute) lower respiratory infection (principal); J18.9 Pneumonia, unspecified organism; J96.01 Acute respiratory failure with hypoxia; F10.239 Alcohol dependence with withdrawal, unspecified; E87.1 Hypo-osmolality and hyponatremia; J44.1 Chronic obstructive pulmonary disease with (acute) exacerbation; F10.20 Alcohol dependence, uncomplicated; E66.01 Morbid (severe) obesity due to excess calories; Z68.33 Body mass index [BMI] 33.0-33.9, adult; F17.210 Nicotine dependence, cigarettes, uncomplicated; G62.9 Polyneuropathy, unspecified
CPT/HCPCS: 36415; 71046; 71260; 80048; 80053; 82550; 82553; 83518; 83880; 84484; 85025; 87040; 87070; 93005; 94060; 94640; 94760; 94799; 99284; G0378; J0696; J1644; J2920; J2930; J3411; J7050; Q9967

== ENCOUNTER 2023-12-08 12:10 | Emergency (ER) | payer MEDICARE, OTHER ==
[~2023-12-08] VITALS: Ht 182.9 cm; Wt 104.3 kg
[~2023-12-08 12:10] MED LIST changes: +AUGMENTIN 500-1 EACH PO; +NAPROXEN250 MG PO; +medro dose pack
[2023-12-08 12:53] VITALS: TEMP 98.1
[2023-12-08 13:56] LABS: BASOPHILS # (AUTO) 0.1 (0.0-0.1); BASOPHILS % 0.8 % (0.0-1.0); EOSINOPHILS # (AUTO) 0.1 (0.0-0.4); EOSINOPHILS % 1.1 % (0.0-6.0); HEMATOCRIT 38.2 % (38.2-49.6); HEMOGLOBIN 12.8 g/dL (14.0-18.0); LYMPHOCYTES # (AUTO) 1.1 (1.0-3.2); LYMPHOCYTES % 16.5 % (18.0-39.1); MEAN CORPUSCULAR HEMOGLOBIN 29.6 pg (28-32); MEAN CORPUSCULAR HGB CONC 33.5 g/dL (31-35); MEAN CORPUSCULAR VOLUME 88.2 fL (81-99); MONOCYTES # (AUTO) 0.3 (0.2-0.8); NEUTROPHILS % 76.3 % (38.7-80.0); PLATELET COUNT 179 x10e3/uL (140-360); RED BLOOD COUNT 4.33 x10e6/uL (4.3-5.7); RED CELL DISTRIBUTION WIDTH 14.1 % (11.7-14.4); WHITE BLOOD COUNT 6.54 x10e3/uL (4.8-10.8)
[2023-12-08 14:07] VITALS: RESP 16
[2023-12-08 14:11] LABS: ALANINE AMINOTRANSFERASE 15 IU/L (0-55); ALBUMIN 3.3 g/dL (3.5-5.0); ALBUMIN/GLOBULIN RATIO 1.3 (0.8-2.0); ALKALINE PHOSPHATASE 75 IU/L (40-150); ANION GAP 13.1 mmol/L (8-16); BILIRUBIN,TOTAL 0.4 mg/dL (0.2-1.2); BLOOD UREA NITROGEN 8 mg/dL (7-26); BUN/CREATININE RATIO 10 (6-25); CARBON DIOXIDE 28 mmol/L (22-29); CHLORIDE 101 mmol/L (98-107); CREATINE KINASE 148 IU/L (30-200); CREATININE, SERUM 0.81 mg/dL (0.72-1.25); EST GLOMERULAR FILTRATION RATE 101 ML/MIN (>=60); GLUCOSE 145 mg/dL (74-118); SODIUM 139 mmol/L (136-145); TOTAL PROTEIN 5.8 g/dL (6.5-8.1)
[2023-12-08 14:16] LABS: CALCIUM 6.6 mg/dL (8.4-10.2); POTASSIUM 3.1 mmol/L (3.5-5.1)
[2023-12-08 14:18] LABS: TROPONIN I < 0.001 ng/mL (0-0.300)
[2023-12-08 14:27] LABS: INR 0.92; PARTIAL THROMBOPLASTIN TIME 23.8 seconds (23.8-35.5)
[2023-12-08 14:46] VITALS: PULSE 79; RESP 18; O2SAT 98
[2023-12-08] MEDS: ALBUTEROL/IPRATROPIUM 3 ML NEB NEB ONE (14:46)
[2023-12-08] MEDS: METHYLPREDNISOLONE SOD SUCC 125 MG/2ML VIAL IV ONE (14:53)
[2023-12-08] MEDS: LEVOFLOXACIN 500 MG TAB PO ONE (14:53)
[2023-12-08 16:25] VITALS: PULSE 86
[2023-12-08] MEDS ORDERED: PREDNISONE20 MG PO (17:10)
[2023-12-08] MEDS ORDERED: LEVOFLOXACIN250 MG PO (17:10)
[2023-12-08 17:25] VITALS: BP 172/114; PULSE 78; RESP 18; O2SAT 96
== END 2023-12-08 17:25 | disposition home or self-care (01) ==
LOC: ER 13:26
DX: R06.02 Shortness of breath (principal); J44.1 Chronic obstructive pulmonary disease with (acute) exacerbation; R05.9 Cough, unspecified; R73.9 Hyperglycemia, unspecified; I10 Essential (primary) hypertension; E78.5 Hyperlipidemia, unspecified; F41.9 Anxiety disorder, unspecified; Z11.52 Encounter for screening for COVID-19
CPT/HCPCS: 36415; 71045; 80053; 82550; 83880; 84484; 85025; 85610; 85730; 93005; 94640; 94799; 99284; J2919; U0002

== ENCOUNTER 2023-12-15 12:56 | Inpatient (IN) | payer MEDICARE, OTHER ==
[~2023-12-15] VITALS: Ht 180.3 cm; Wt 107.5 kg
[~2023-12-15 12:56] MED LIST changes: +LEVOFLOXACIN250 MG PO; +PREDNISONE20 MG PO
[2023-12-15] MEDS: METHYLPREDNISOLONE SOD SUCC 125 MG/2ML VIAL IV ONE (13:18)
[2023-12-15] MEDS: SODIUM CHLORIDE 0.9% 1000ML 1,000 ML IV STA (13:20)
[2023-12-15] MEDS ORDERED: ALBUTEROL/IPRATROPIUM 3 ML NEB ONE (13:26)
[2023-12-15 13:30] VITALS: PULSE 108; O2SAT 98
[2023-12-15 13:41] LABS: ABG HCO3 33 mmol/L (22-26); ABG PCO2 45 mmHg (35-45); ABG PH 7.47 (7.35-7.45); ABG PO2 310 mmHg (80-105); ABG TCO2 34
[2023-12-15] MEDS: LORAZEPAM INJ 2 MG/ML VIAL IV ONE ×2 (14:01→15:18)
[2023-12-15 14:08] LABS: BASOPHILS # (AUTO) 0.1 (0.0-0.1); BASOPHILS % 0.5 % (0.0-1.0); EOSINOPHILS # (AUTO) 0.2 (0.0-0.4); EOSINOPHILS % 1.6 % (0.0-6.0); HEMATOCRIT 44.1 % (38.2-49.6); HEMOGLOBIN 14.6 g/dL (14.0-18.0); LYMPHOCYTES # (AUTO) 2.8 (1.0-3.2); LYMPHOCYTES % 26.8 % (18.0-39.1); MEAN CORPUSCULAR HEMOGLOBIN 29.3 pg (28-32); MEAN CORPUSCULAR HGB CONC 33.1 g/dL (31-35); MEAN CORPUSCULAR VOLUME 88.6 fL (81-99); MONOCYTES # (AUTO) 0.6 (0.2-0.8); NEUTROPHILS # (AUTO) 6.7 (2.1-6.9); NEUTROPHILS % 64.2 % (38.7-80.0); PLATELET COUNT 231 x10e3/uL (140-360); RED BLOOD COUNT 4.98 x10e6/uL (4.3-5.7); RED CELL DISTRIBUTION WIDTH 14.7 % (11.7-14.4); WHITE BLOOD COUNT 10.38 x10e3/uL (4.8-10.8)
[2023-12-15 14:16] LABS: INR 0.86; PROTHROMBIN TIME 12.3 seconds (11.9-14.5)
[2023-12-15 14:17] LABS: PARTIAL THROMBOPLASTIN TIME 21.5 seconds (23.8-35.5)
[2023-12-15] MEDS: MAGNESIUM SULF 1GRAM/DEXTROSE 100 ML IV ONE (14:18)
[2023-12-15 14:25] LABS: ALANINE AMINOTRANSFERASE 30 IU/L (0-55); ALBUMIN 3.9 g/dL (3.5-5.0); ALBUMIN/GLOBULIN RATIO 1.3 (0.8-2.0); ALKALINE PHOSPHATASE 81 IU/L (40-150); ANION GAP 19.9 mmol/L (8-16); BILIRUBIN,TOTAL 0.7 mg/dL (0.2-1.2); BLOOD UREA NITROGEN 8 mg/dL (7-26); BUN/CREATININE RATIO 9 (6-25); CARBON DIOXIDE 29 mmol/L (22-29); CHLORIDE 98 mmol/L (98-107); CREATINE KINASE 149 IU/L (30-200); CREATININE, SERUM 0.88 mg/dL (0.72-1.25); EST GLOMERULAR FILTRATION RATE 98 ML/MIN (>=60); GLUCOSE 108 mg/dL (74-118); SODIUM 144 mmol/L (136-145); TOTAL PROTEIN 6.8 g/dL (6.5-8.1)
[2023-12-15 14:29] LABS: CALCIUM 6.6 mg/dL (8.4-10.2); MAGNESIUM < 0.6 MG/DL (1.3-2.1); POTASSIUM 2.9 mmol/L (3.5-5.1)
[2023-12-15 14:34] LABS: INFLUENZAE A&B ANTIGEN (RAPID) NEGATIVE (NEGATIVE); RESPIRATORY SYNC. VIRUS NEGATIVE (NEGATIVE)
[2023-12-15 15:13] LABS: TROPONIN I 0.024 ng/mL (0-0.300)
[2023-12-15] MEDS ORDERED: IOPAMIDOL 370 MG/ML 100 ML INFUS..BTL INJ ONE (15:14)
[2023-12-15] MEDS: DILTIAZEM HCL 60 MG TAB PO SCH (15:19)
[2023-12-15] MEDS: DILTIAZEM HCL 5 MG/ML 5 ML VIAL IV ONE (15:19)
[2023-12-15] MEDS: MULTIVITAMINS- 12 INJECTION 10 ML, FOLIC ACID MDV 1 MG, THIAMINE HCL INJ 100 MG in SODI... IV ONE (15:45)
[2023-12-15 15:46] LABS: BILIRUBIN,URINE NEGATIVE (NEGATIVE); CLARITY,URINE SL CLOUDY (CLEAR); COLOR,URINE YELLOW (YELLOW); GLUCOSE, URINE NEGATIVE (NEGATIVE); KETONES,URINE NEGATIVE (NEGATIVE); LEUKOCYTE ESTERASE ,URINE NEGATIVE (NEGATIVE); NITRITE,URINE NEGATIVE (NEGATIVE); PH,URINE 6.5 (5 - 7); PROTEIN,URINE DIPSTICK NEGATIVE (NEGATIVE); URINE UROBILINOGEN 0.2 mg/dL (0.2 - 1)
[2023-12-15 15:47] LABS: AMPHETAMINES SCREEN,URINE NEGATIVE (NEGATIVE); BENZODIAZEPINES SCREEN,URINE NEGATIVE (NEGATIVE); CANNABINOIDS SCREEN,URINE NEGATIVE (NEGATIVE); METHADONE SCREEN, URINE NEGATIVE (NEGATIVE); OPIATES SCREEN,URINE NEGATIVE (NEGATIVE); PHENCYCLIDINE SCREEN,URINE NEGATIVE (NEGATIVE)
[2023-12-15] MEDS: SODIUM CHLORIDE 0.9% 1000ML 1,000 ML IV ONE (15:48)
[2023-12-15] MEDS: MAGNESIUM SULFATE 2GM/50ML 50 ML IV ONE (15:48)
[2023-12-15 16:00] LABS: WBC,URINE (MAN) 0-5 /HPF (0-5)
[2023-12-15 17:09] VITALS: PULSE 102; RESP 20; TEMP 99.3
[2023-12-15] MEDS: POTASSIUM CHLORIDE 20 MEQ TAB CR PO ONE (17:17)
[2023-12-15] MEDS: CALCIUM GLUC 1 G/50 ML NACL 100 ML IV ONE (17:19)
[2023-12-15] MEDS: KCL 20MEQ/.9 SOD CHL 1,000 ML IV ONE (18:33)
[2023-12-15 20:00] VITALS: BP 147/100; PULSE 104; RESP 15; O2SAT 96
[2023-12-15 20:05] VITALS: PULSE 103; RESP 20; O2SAT 95
[2023-12-15] MEDS: ALBUTEROL/IPRATROPIUM 3 ML NEB NEB SCH (20:09)
[2023-12-15 21:01] VITALS: BP 150/96; PULSE 104; RESP 20; TEMP 98.7; O2SAT 100
[2023-12-15] MEDS: METHYLPREDNISOLONE SOD SUCC 125 MG/2ML VIAL IV SCH (21:05)
[2023-12-15] MEDS: ATORVASTATIN 20 MG TAB PO SCH (21:05)
[2023-12-15] MEDS: ZOLPIDEM TARTRATE 5 MG TAB PO PRN (22:52)
[2023-12-15 22:56] VITALS: PULSE 98; RESP 20; O2SAT 98
[2023-12-16] VITALS (11 sets, daily range): BP systolic 137–170; BP diastolic 88–106; PULSE 87–108; RESP 19–22; TEMP 97.7–99.3; O2SAT 96–99
[2023-12-16] MEDS: MAGNESIUM SULF 1GRAM/DEXTROSE 100 ML IV ONE (00:28)
[2023-12-16 06:05] LABS: BASOPHILS % 0.1 % (0.0-1.0); HEMATOCRIT 38.4 % (38.2-49.6); HEMOGLOBIN 12.8 g/dL (14.0-18.0); LYMPHOCYTES # (AUTO) 0.6 (1.0-3.2); LYMPHOCYTES % 5.9 % (18.0-39.1); MEAN CORPUSCULAR HEMOGLOBIN 29.9 pg (28-32); MEAN CORPUSCULAR HGB CONC 33.3 g/dL (31-35); MEAN CORPUSCULAR VOLUME 89.7 fL (81-99); MONOCYTES # (AUTO) 0.2 (0.2-0.8); MONOCYTES % 1.6 % (4.4-11.3); NEUTROPHILS # (AUTO) 9.4 (2.1-6.9); NEUTROPHILS % 91.3 % (38.7-80.0); PLATELET COUNT 205 x10e3/uL (140-360); RED BLOOD COUNT 4.28 x10e6/uL (4.3-5.7); WHITE BLOOD COUNT 10.23 x10e3/uL (4.8-10.8)
[2023-12-16 06:34] LABS: ALBUMIN 3.4 g/dL (3.5-5.0); ALBUMIN/GLOBULIN RATIO 1.3 (0.8-2.0); ANION GAP 18.5 mmol/L (8-16); BILIRUBIN,TOTAL 0.4 mg/dL (0.2-1.2); CREATININE, SERUM 0.82 mg/dL (0.72-1.25); PHOSPHORUS 1.7 MG/DL (2.3-4.7); POTASSIUM 3.5 mmol/L (3.5-5.1); TOTAL PROTEIN 6.1 g/dL (6.5-8.1)
[2023-12-16 06:41] LABS: CALCIUM 6.7 mg/dL (8.4-10.2); MAGNESIUM 1.1 MG/DL (1.3-2.1)
[2023-12-16 07:29] LABS: TROPONIN I 0.002 ng/mL (0-0.300)
[2023-12-16] MEDS ORDERED: MAGNESIUM SULFATE 2GM/50ML IV ONE (08:15)
[2023-12-16] MEDS ORDERED: PREDNISONE 10 MG TAB PO SCH (09:00)
[2023-12-16] MEDS: MAGNESIUM SULFATE 2GM/50ML 50 ML IV SCH (09:05)
[2023-12-16] MEDS: SODIUM CHLORIDE 0.9% 250ML 250 ML ONE (11:11)
[2023-12-16] MEDS: FOLIC ACID 1 MG TAB PO SCH (11:23)
[2023-12-16] MEDS: THIAMINE HCL 100 MG TAB PO SCH (11:23)
[2023-12-16] MEDS: CHLORDIAZEPOXIDE HCL 25 MG CAP PO SCH ×2 (11:23→17:07)
[2023-12-16] MEDS: METOPROLOL TARTRATE 25 MG TAB PO SCH (11:23)
[2023-12-16] MEDS: AMLODIPINE BESYLATE 5 MG TAB PO ONE (11:23)
[2023-12-16] MEDS: POTASSIUM PHOSPHATE 20 MM in SODIUM CHLORIDE 0.9% 250ML 250 ML IV ONE (11:29)
[2023-12-16] MEDS: LORAZEPAM INJ 2 MG/ML VIAL IV PRN (11:46)
[2023-12-16 12:51] LABS: TROPONIN I 0.002 ng/mL (0-0.300)
[2023-12-16] MEDS: HYDRALAZINE HCL 20 MG/ML VIAL IV PRN (15:03)
[2023-12-16] MEDS: OLANZAPINE 5 MG TAB PO SCH (21:23)
[2023-12-16] MEDS: METHYLPREDNISOLONE SOD SUCC 40 MG/ML VIAL 1ML IV SCH (21:24)
[2023-12-17] VITALS (10 sets, daily range): BP systolic 134–154; BP diastolic 79–97; PULSE 64–83; RESP 18–21; TEMP 97.7–98.4; O2SAT 95–100
[2023-12-17] MEDS: PANTOPRAZOLE SOD 40 MG TABEC PO SCH (09:05)
[2023-12-17] MEDS: AMLODIPINE BESYLATE 5 MG TAB PO SCH (09:05)
[2023-12-17 10:20] LABS: ALBUMIN 3.2 g/dL (3.5-5.0); ALBUMIN/GLOBULIN RATIO 1.3 (0.8-2.0); ANION GAP 14.1 mmol/L (8-16); BILIRUBIN,TOTAL 0.3 mg/dL (0.2-1.2); CALCIUM 7.6 mg/dL (8.4-10.2); CREATININE, SERUM 0.68 mg/dL (0.72-1.25); POTASSIUM 4.1 mmol/L (3.5-5.1); TOTAL PROTEIN 5.7 g/dL (6.5-8.1)
[2023-12-17] MEDS: METHYLPREDNISOLONE SOD SUCC 40 MG/ML VIAL 1ML IV SCH (10:55)
[2023-12-18] VITALS: BP 154/90; PULSE 70; RESP 20; TEMP 98.1; O2SAT 96
[2023-12-18 04:00] VITALS: BP 139/80; PULSE 66; RESP 20; TEMP 97.8; O2SAT 96
[2023-12-18 07:26] VITALS: PULSE 59; RESP 18; O2SAT 97
[2023-12-18 09:14] VITALS: BP 138/60; PULSE 59; RESP 18; TEMP 97.8; O2SAT 97
[2023-12-18 10:53] VITALS: PULSE 63; RESP 18; O2SAT 96
[2023-12-18 11:07] VITALS: PULSE 63; RESP 18; O2SAT 96
[2023-12-18] MEDS ORDERED: AZITHROMYCIN 250 MG TAB PO SCH (13:30)
[2023-12-19] MEDS ORDERED: PREDNISONE 20 MG TAB PO SCH (10:30)
== END 2023-12-18 12:27 | disposition home or self-care (01) | DRG 189 ==
LOC: ER 13:05 → ERHOLD 17:02 → MED/SURG2 20:30
PROVIDERS: ADMIT Internal Medicine; ATTEND Internal Medicine
PROC: 5A09357 Assistance with Respiratory Ventilation, Less than 24 Consecutive Hours, Continuous Positive Airway Pressure (ICD-10-PCS; principal; 2023-12-15)
PROC: HZ2ZZZZ Detoxification Services for Substance Abuse Treatment (ICD-10-PCS; 2023-12-15)
DX: J96.01 Acute respiratory failure with hypoxia (principal); J44.1 Chronic obstructive pulmonary disease with (acute) exacerbation; F10.231 Alcohol dependence with withdrawal delirium; E83.51 Hypocalcemia; Z99.81 Dependence on supplemental oxygen; I10 Essential (primary) hypertension; E78.5 Hyperlipidemia, unspecified; G62.9 Polyneuropathy, unspecified; E83.42 Hypomagnesemia; E87.6 Hypokalemia; F41.0 Panic disorder [episodic paroxysmal anxiety]; F41.9 Anxiety disorder, unspecified; F32.9 Major depressive disorder, single episode, unspecified; Z79.52 Long term (current) use of systemic steroids; Z79.51 Long term (current) use of inhaled steroids; Z85.820 Personal history of malignant melanoma of skin; F17.210 Nicotine dependence, cigarettes, uncomplicated
CPT/HCPCS: 36415; 36600; 71045; 71260; 80053; 80307; 80320; 81001; 82550; 82805; 83605; 83735; 83880; 84100; 84484; 85025; 85610; 85730; 87040; 87086; 87400; 87420; 93005; 94640; 94660; 94760; 94799; 99285; J0360; J0696; J2060; J2919; J3411; J3475; J7030; J7050; Q9967; U0002

== ENCOUNTER 2023-12-28 11:04 | Emergency (ER) | payer MEDICARE, OTHER ==
[~2023-12-28] VITALS: Ht 180.3 cm; Wt 107.5 kg
[2023-12-28 11:14] VITALS: TEMP 98.7
[2023-12-28] MEDS: SODIUM CHLORIDE 0.9% 1000ML 1,000 ML IV STA (11:35)
[2023-12-28 11:37] LABS: BASOPHILS # (AUTO) 0.1 (0.0-0.1); BASOPHILS % 0.7 % (0.0-1.0); EOSINOPHILS # (AUTO) 0.1 (0.0-0.4); HEMATOCRIT 43.6 % (38.2-49.6); HEMOGLOBIN 14.3 g/dL (14.0-18.0); LYMPHOCYTES # (AUTO) 2.6 (1.0-3.2); LYMPHOCYTES % 34.1 % (18.0-39.1); MEAN CORPUSCULAR HEMOGLOBIN 29.9 pg (28-32); MEAN CORPUSCULAR HGB CONC 32.8 g/dL (31-35); MONOCYTES # (AUTO) 0.4 (0.2-0.8); MONOCYTES % 5.1 % (4.4-11.3); NEUTROPHILS # (AUTO) 4.4 (2.1-6.9); NEUTROPHILS % 58.2 % (38.7-80.0); PLATELET COUNT 178 x10e3/uL (140-360); RED BLOOD COUNT 4.79 x10e6/uL (4.3-5.7); RED CELL DISTRIBUTION WIDTH 15.1 % (11.7-14.4); WHITE BLOOD COUNT 7.62 x10e3/uL (4.8-10.8)
[2023-12-28 11:44] LABS: INR 0.86; PROTHROMBIN TIME 12.2 seconds (11.9-14.5)
[2023-12-28 11:45] LABS: PARTIAL THROMBOPLASTIN TIME 22.9 seconds (23.8-35.5)
[2023-12-28 12:02] LABS: ALANINE AMINOTRANSFERASE 25 IU/L (0-55); ALBUMIN 4.2 g/dL (3.5-5.0); ALBUMIN/GLOBULIN RATIO 2.1 (0.8-2.0); ALKALINE PHOSPHATASE 65 IU/L (40-150); ANION GAP 16.9 mmol/L (8-16); BILIRUBIN,TOTAL 0.5 mg/dL (0.2-1.2); BLOOD UREA NITROGEN 23 mg/dL (7-26); BUN/CREATININE RATIO 26 (6-25); CALCIUM 8.9 mg/dL (8.4-10.2); CARBON DIOXIDE 27 mmol/L (22-29); CHLORIDE 102 mmol/L (98-107); CREATININE, SERUM 0.87 mg/dL (0.72-1.25); EST GLOMERULAR FILTRATION RATE 99 ML/MIN (>=60); GLUCOSE 89 mg/dL (74-118); POTASSIUM 3.9 mmol/L (3.5-5.1); SODIUM 142 mmol/L (136-145); TOTAL PROTEIN 6.2 g/dL (6.5-8.1)
[2023-12-28 12:03] LABS: TROPONIN I < 0.001 ng/mL (0-0.300)
[2023-12-28 12:07] VITALS: PULSE 75; RESP 20
[2023-12-28] MEDS: ALBUTEROL/IPRATROPIUM 3 ML NEB NEB ONE (12:07)
[2023-12-28 12:14] VITALS: PULSE 87; RESP 20
[2023-12-28 12:15] LABS: MAGNESIUM 1.1 MG/DL (1.3-2.1)
[2023-12-28] MEDS: MAGNESIUM SULF 1GRAM/DEXTROSE 100 ML IV ONE (12:28)
[2023-12-28] MEDS ORDERED: PREDNISONE20 MG PO (12:51)
[2023-12-28 14:02] VITALS: O2SAT 98
== END 2023-12-28 14:04 | disposition home or self-care (01) ==
LOC: ER 11:09
DX: R06.02 Shortness of breath (principal); J44.1 Chronic obstructive pulmonary disease with (acute) exacerbation; E83.42 Hypomagnesemia; F10.10 Alcohol abuse, uncomplicated; R94.31 Abnormal electrocardiogram [ECG] [EKG]; Z11.52 Encounter for screening for COVID-19; Z87.891 Personal history of nicotine dependence
CPT/HCPCS: 36415; 71045; 80053; 83735; 84484; 85025; 85610; 85730; 93005; 99284; J3475; J7030; U0002

== ENCOUNTER 2024-03-08 11:28 | Emergency (ER) | payer MEDICARE, OTHER ==
[~2024-03-08] VITALS: Ht 182.9 cm; Wt 106.6 kg
[~2024-03-08 11:28] MED LIST changes: +ATORVASTATIN CA40 MG PO; +B-1100 MG PO; +BUPROPION XL150 MG PO; +DIAZEPAM5 MG PO; +FENOFIBRATE145 MG PO; +Folic Acid PO; +HYDROXYZINE PAM25 MG PO; +OMEPRAZOLE40 MG PO; +PREGABALIN50 MG PO; +TAMSULOSIN PO
[2024-03-08 11:56] VITALS: TEMP 98.1
[2024-03-08 12:35] LABS: BASOPHILS # (AUTO) 0.1 (0.0-0.1); EOSINOPHILS # (AUTO) 0.2 (0.0-0.4); EOSINOPHILS % 2.4 % (0.0-6.0); HEMATOCRIT 41.3 % (38.2-49.6); HEMOGLOBIN 13.4 g/dL (14.0-18.0); LYMPHOCYTES # (AUTO) 1.3 (1.0-3.2); LYMPHOCYTES % 19.1 % (18.0-39.1); MEAN CORPUSCULAR HGB CONC 32.4 g/dL (31-35); MEAN CORPUSCULAR VOLUME 95.6 fL (81-99); MONOCYTES # (AUTO) 0.4 (0.2-0.8); MONOCYTES % 5.7 % (4.4-11.3); NEUTROPHILS # (AUTO) 4.8 (2.1-6.9); NEUTROPHILS % 71.2 % (38.7-80.0); PLATELET COUNT 356 x10e3/uL (140-360); RED BLOOD COUNT 4.32 x10e6/uL (4.3-5.7); RED CELL DISTRIBUTION WIDTH 14.2 % (11.7-14.4); WHITE BLOOD COUNT 6.69 x10e3/uL (4.8-10.8)
[2024-03-08] MEDS ORDERED: IOPAMIDOL 370 MG/ML 100 ML INFUS..BTL INJ ONE (12:36)
[2024-03-08] MEDS: DICYCLOMINE HCL 20 MG/2 ML VIAL IM ONE (13:14)
[2024-03-08] MEDS: ONDANSETRON HCL INJ 2MG/ML 2ML 2 MG/ML VIAL IV STA (13:14)
[2024-03-08] MEDS: SODIUM CHLORIDE 0.9% 1000ML 1,000 ML IV SCH (13:15)
[2024-03-08 13:20] LABS: ALBUMIN 3.3 g/dL (3.5-5.0); ANION GAP 14.7 mmol/L (8-16); BILIRUBIN,TOTAL 0.3 mg/dL (0.2-1.2); CALCIUM 9.5 mg/dL (8.4-10.2); CREATININE, SERUM 0.82 mg/dL (0.72-1.25); POTASSIUM 3.7 mmol/L (3.5-5.1); TOTAL PROTEIN 6.7 g/dL (6.5-8.1)
[2024-03-08 13:25] LABS: TROPONIN I 0.008 ng/mL (0-0.300)
[2024-03-08 13:45] VITALS: PULSE 68; RESP 14; O2SAT 99
[2024-03-08] MEDS ORDERED: AMOX TR-K CLV1 EAC2 PO (13:58)
[2024-03-08] MEDS ORDERED: DICYCLOMINE HCL20 MG PO (13:58)
== END 2024-03-08 14:09 | disposition home or self-care (01) ==
LOC: ER 11:36
DX: R10.30 Lower abdominal pain, unspecified (principal); K57.32 Diverticulitis of large intestine without perforation or abscess without bleeding; I10 Essential (primary) hypertension; E11.9 Type 2 diabetes mellitus without complications; I48.91 Unspecified atrial fibrillation; K76.9 Liver disease, unspecified; E66.01 Morbid (severe) obesity due to excess calories; M54.9 Dorsalgia, unspecified; G89.29 Other chronic pain; F17.210 Nicotine dependence, cigarettes, uncomplicated
CPT/HCPCS: 36415; 71045; 74177; 80053; 83690; 84484; 85025; 93005; 99284; J0500; J2405; J2470; J7030; Q9967

== ENCOUNTER 2024-04-19 07:49 | Emergency (ER) | payer MEDICARE, OTHER ==
[~2024-04-19] VITALS: Ht 182.9 cm; Wt 106.6 kg
[~2024-04-19 07:49] MED LIST changes: +AMOX TR-K CLV1 EAC2 PO; +DICYCLOMINE HCL20 MG PO
[2024-04-19 08:00] VITALS: PULSE 82; RESP 18; TEMP 98.6
[2024-04-19 08:37] LABS: BASOPHILS % 0.6 % (0.0-1.0); EOSINOPHILS # (AUTO) 0.1 (0.0-0.4); EOSINOPHILS % 1.4 % (0.0-6.0); HEMATOCRIT 44.7 % (38.2-49.6); HEMOGLOBIN 14.4 g/dL (14.0-18.0); LYMPHOCYTES # (AUTO) 2.1 (1.0-3.2); LYMPHOCYTES % 31.7 % (18.0-39.1); MEAN CORPUSCULAR HEMOGLOBIN 31.3 pg (28-32); MEAN CORPUSCULAR HGB CONC 32.2 g/dL (31-35); MEAN CORPUSCULAR VOLUME 97.2 fL (81-99); MONOCYTES # (AUTO) 0.4 (0.2-0.8); NEUTROPHILS % 59.7 % (38.7-80.0); PLATELET COUNT 252 x10e3/uL (140-360); RED CELL DISTRIBUTION WIDTH 13.4 % (11.7-14.4); WHITE BLOOD COUNT 6.63 x10e3/uL (4.8-10.8)
[2024-04-19] MEDS: METHYLPREDNISOLONE SOD SUCC 125 MG/2ML VIAL IV STA (08:43)
[2024-04-19] MEDS: SODIUM CHLORIDE 0.9% 1000ML 1,000 ML IV STA (08:44)
[2024-04-19] MEDS: HYDROCODONE/APAP 7.5MG-325MG 1 EA TAB PO ONE (08:44)
[2024-04-19 08:58] VITALS: PULSE 71; RESP 13; O2SAT 93
[2024-04-19] MEDS: ALBUTEROL/IPRATROPIUM 3 ML NEB NEB ONE (08:58)
[2024-04-19 09:09] LABS: ALANINE AMINOTRANSFERASE 14 IU/L (0-55); ALBUMIN 3.9 g/dL (3.5-5.0); ALBUMIN/GLOBULIN RATIO 1.3 (0.8-2.0); ALKALINE PHOSPHATASE 72 IU/L (40-150); ANION GAP 19.8 mmol/L (8-16); BILIRUBIN,TOTAL 0.4 mg/dL (0.2-1.2); BLOOD UREA NITROGEN 9 mg/dL (7-26); BUN/CREATININE RATIO 9 (6-25); CALCIUM 9.3 mg/dL (8.4-10.2); CARBON DIOXIDE 23 mmol/L (22-29); CHLORIDE 97 mmol/L (98-107); CREATINE KINASE 62 IU/L (30-200); CREATININE, SERUM 1.01 mg/dL (0.72-1.25); EST GLOMERULAR FILTRATION RATE 85 ML/MIN (>=60); GLUCOSE 85 mg/dL (74-118); MAGNESIUM 1.4 MG/DL (1.3-2.1); POTASSIUM 3.8 mmol/L (3.5-5.1); SODIUM 136 mmol/L (136-145)
[2024-04-19 09:12] LABS: INR 0.93
[2024-04-19 09:13] LABS: PARTIAL THROMBOPLASTIN TIME 25.2 seconds (23.8-35.5)
[2024-04-19 09:17] LABS: TROPONIN I < 0.001 ng/mL (0-0.300)
[2024-04-19 09:44] LABS: CORONAVIRUS COVID-19 AG NEGATIVE (NEGATIVE); INFLUENZA A AG NEGATIVE (NEGATIVE); INFLUENZA B AG NEGATIVE (NEGATIVE)
[2024-04-19] MEDS ORDERED: AZITHROMYCIN250 MG PO (10:08)
[2024-04-19] MEDS ORDERED: BENZONATATE200 MG PO (10:10)
[2024-04-19 10:20] VITALS: BP 158/114; PULSE 73; RESP 15; O2SAT 91
== END 2024-04-19 10:30 | disposition home or self-care (01) ==
LOC: ER 07:53
DX: R05.9 Cough, unspecified (principal); J44.89 Other specified chronic obstructive pulmonary disease; I10 Essential (primary) hypertension; E11.9 Type 2 diabetes mellitus without complications; I48.91 Unspecified atrial fibrillation; K76.9 Liver disease, unspecified; E66.01 Morbid (severe) obesity due to excess calories; M54.9 Dorsalgia, unspecified; G89.29 Other chronic pain
CPT/HCPCS: 36415; 71045; 80053; 82550; 83735; 84484; 85025; 85610; 85730; 87040; 87428; 93005; 94640; 94799; 99284; J2919; J7030

== ENCOUNTER 2024-04-28 19:18 | Inpatient (IN) | payer MEDICARE ==
[~2024-04-28] VITALS: Ht 182.9 cm; Wt 105.7 kg
[~2024-04-28 19:18] MED LIST changes: +AZITHROMYCIN250 MG PO; +BENZONATATE200 MG PO
[2024-04-28 19:24] VITALS: PULSE 88; RESP 20; TEMP 98.8
[2024-04-28 19:36] LABS: BASOPHILS # (AUTO) 0.1 (0.0-0.1); BASOPHILS % 0.8 % (0.0-1.0); EOSINOPHILS % 0.4 % (0.0-6.0); HEMATOCRIT 44.1 % (38.2-49.6); HEMOGLOBIN 14.7 g/dL (14.0-18.0); LYMPHOCYTES # (AUTO) 3.4 (1.0-3.2); MEAN CORPUSCULAR HEMOGLOBIN 32.1 pg (28-32); MEAN CORPUSCULAR HGB CONC 33.3 g/dL (31-35); MEAN CORPUSCULAR VOLUME 96.3 fL (81-99); MONOCYTES # (AUTO) 0.6 (0.2-0.8); MONOCYTES % 8.2 % (4.4-11.3); NEUTROPHILS % 42.5 % (38.7-80.0); PLATELET COUNT 294 x10e3/uL (140-360); RED BLOOD COUNT 4.58 x10e6/uL (4.3-5.7); RED CELL DISTRIBUTION WIDTH 13.3 % (11.7-14.4); WHITE BLOOD COUNT 7.06 x10e3/uL (4.8-10.8)
[2024-04-28 20:03] LABS: ALANINE AMINOTRANSFERASE 37 IU/L (0-55); ALBUMIN 3.6 g/dL (3.5-5.0); ALBUMIN/GLOBULIN RATIO 1.2 (0.8-2.0); ALKALINE PHOSPHATASE 65 IU/L (40-150); ANION GAP 18.9 mmol/L (8-16); BILIRUBIN,TOTAL 0.3 mg/dL (0.2-1.2); BLOOD UREA NITROGEN 15 mg/dL (7-26); BUN/CREATININE RATIO 17 (6-25); CALCIUM 8.6 mg/dL (8.4-10.2); CARBON DIOXIDE 24 mmol/L (22-29); CHLORIDE 98 mmol/L (98-107); CREATINE KINASE 46 IU/L (30-200); CREATININE, SERUM 0.88 mg/dL (0.72-1.25); EST GLOMERULAR FILTRATION RATE 98 ML/MIN (>=60); GLUCOSE 89 mg/dL (74-118); POTASSIUM 3.9 mmol/L (3.5-5.1); SODIUM 137 mmol/L (136-145); TOTAL PROTEIN 6.6 g/dL (6.5-8.1)
[2024-04-28 20:14] LABS: TROPONIN I < 0.001 ng/mL (0-0.300)
[2024-04-28 20:27] VITALS: PULSE 81; RESP 18; O2SAT 99
[2024-04-28] MEDS: ALBUTEROL/IPRATROPIUM 3 ML NEB NEB STA (20:27)
[2024-04-28] MEDS: METHYLPREDNISOLONE SOD SUCC 125 MG/2ML VIAL IV STA (20:32)
[2024-04-28] MEDS: SODIUM CHLORIDE 0.9% 1000ML 1,000 ML IV SCH (22:56)
[2024-04-28 23:00] VITALS: BP 146/89; PULSE 76; RESP 20; TEMP 98.4; O2SAT 96
[2024-04-28 23:29] VITALS: PULSE 89; RESP 18; O2SAT 95
[2024-04-28] MEDS: ALBUTEROL SULF 0.083% NEB SOLN 3 ML NEB NEB PRN (23:29)
[2024-04-29] VITALS (13 sets, daily range): BP systolic 142–185; BP diastolic 95–127; PULSE 82–127; RESP 18–22; TEMP 97.9–98.9; O2SAT 95–100
[2024-04-29] MEDS: METHYLPREDNISOLONE SOD SUCC 40 MG/ML VIAL 1ML IV SCH ×2 (00:30→20:14)
[2024-04-29 06:17] LABS: EOSINOPHILS % 0.4 % (0.0-6.0); HEMATOCRIT 45.8 % (38.2-49.6); HEMOGLOBIN 14.6 g/dL (14.0-18.0); LYMPHOCYTES # (AUTO) 0.7 (1.0-3.2); LYMPHOCYTES % 24.7 % (18.0-39.1); MEAN CORPUSCULAR HEMOGLOBIN 31.5 pg (28-32); MEAN CORPUSCULAR HGB CONC 31.9 g/dL (31-35); MEAN CORPUSCULAR VOLUME 98.9 fL (81-99); MONOCYTES % 0.8 % (4.4-11.3); NEUTROPHILS # (AUTO) 1.9 (2.1-6.9); NEUTROPHILS % 73.3 % (38.7-80.0); PLATELET COUNT 211 x10e3/uL (140-360); RED BLOOD COUNT 4.63 x10e6/uL (4.3-5.7); RED CELL DISTRIBUTION WIDTH 13.2 % (11.7-14.4); WHITE BLOOD COUNT 2.63 x10e3/uL (4.8-10.8)
[2024-04-29] MEDS: SODIUM CHLORIDE 0.9% 1000ML 1,000 ML IV SCH (06:41)
[2024-04-29 06:50] LABS: ALBUMIN 3.7 g/dL (3.5-5.0); ALBUMIN/GLOBULIN RATIO 1.4 (0.8-2.0); ANION GAP 20.9 mmol/L (8-16); BILIRUBIN,TOTAL 0.6 mg/dL (0.2-1.2); CALCIUM 8.2 mg/dL (8.4-10.2); CREATININE, SERUM 0.79 mg/dL (0.72-1.25); POTASSIUM 3.9 mmol/L (3.5-5.1); TOTAL PROTEIN 6.4 g/dL (6.5-8.1)
[2024-04-29 07:17] LABS: TROPONIN I 0.007 ng/mL (0-0.300)
[2024-04-29] MEDS ORDERED: HYDRALAZINE HCL 20 MG/ML VIAL IV PRN (08:15)
[2024-04-29] MEDS ORDERED: IOPAMIDOL 370 MG/ML 100 ML INFUS..BTL INJ ONE (08:21)
[2024-04-29] MEDS: LORAZEPAM INJ 2 MG/ML VIAL IV ONE (08:24)
[2024-04-29] MEDS: PANTOPRAZOLE SOD 40 MG TABEC PO SCH (08:25)
[2024-04-29] MEDS: LOSARTAN POTASSIUM 100 MG TAB PO SCH (08:26)
[2024-04-29] MEDS: HYDRALAZINE HCL 20 MG/ML VIAL IV PRN (08:26)
[2024-04-29] MEDS: NON-FORMULARY MEDICATION (Fluticasone/Umeclidin/Vilanter (Trelegy Ellipta 100-62.5-25) 1 I INH SCH (09:00)
[2024-04-29 11:54] LABS: CLARITY,URINE CLEAR (CLEAR); COLOR,URINE YELLOW (YELLOW); PH,URINE 6 (5 - 7)
[2024-04-29 11:55] LABS: BILIRUBIN,URINE NEGATIVE (NEGATIVE); GLUCOSE, URINE NEGATIVE (NEGATIVE); KETONES,URINE TRACE (NEGATIVE); LEUKOCYTE ESTERASE ,URINE NEGATIVE (NEGATIVE); NITRITE,URINE NEGATIVE (NEGATIVE); PROTEIN,URINE DIPSTICK NEGATIVE (NEGATIVE); URINE UROBILINOGEN 0.2 mg/dL (0.2 - 1)
[2024-04-29 12:08] LABS: BACTERIA,URINE RARE /HPF; EPITHELIAL CELLS,URINE RARE /LPF; RBC,URINE 0-5 /HPF (0-5); WBC,URINE (MAN) 0-5 /HPF (0-5)
[2024-04-29 13:39] LABS: TROPONIN I 0.002 ng/mL (0-0.300)
[2024-04-29] MEDS: HYDROXYZINE PAMOATE 25 MG CAP PO PRN (20:14)
[2024-04-29] MEDS: ZOLPIDEM TARTRATE 5 MG TAB PO PRN (21:55)
[2024-04-29] MEDS: BENZONATATE 100 MG CAP PO PRN (21:55)
[2024-04-30] VITALS (11 sets, daily range): BP systolic 105–159; BP diastolic 52–99; PULSE 75–97; RESP 18–20; TEMP 97.9–98.2; O2SAT 96–100
[2024-04-30 06:49] LABS: ALBUMIN 3.3 g/dL (3.5-5.0); ALBUMIN/GLOBULIN RATIO 1.4 (0.8-2.0); ANION GAP 15.6 mmol/L (8-16); BILIRUBIN,TOTAL 0.8 mg/dL (0.2-1.2); CALCIUM 8.8 mg/dL (8.4-10.2); CREATININE, SERUM 0.79 mg/dL (0.72-1.25); MAGNESIUM 1.3 MG/DL (1.3-2.1); POTASSIUM 3.6 mmol/L (3.5-5.1); TOTAL PROTEIN 5.7 g/dL (6.5-8.1)
[2024-04-30 07:05] LABS: CHOL/HDL RATIO 1.9 (3.9-4.7)
[2024-04-30 07:25] LABS: THYROID STIMULATING HORMONE 0.603 uIU/mL (0.350-4.940)
[2024-04-30] MEDS: CARVEDILOL 3.125 MG TAB PO SCH (09:06)
[2024-04-30] MEDS: BUPROPION HCL 150 MG TABCR PO SCH (09:07)
[2024-04-30] MEDS: AMLODIPINE BESYLATE 10 MG TAB PO ONE (12:24)
[2024-04-30] MEDS: METHYLPREDNISOLONE SOD SUCC 40 MG/ML VIAL 1ML IV SCH (20:52)
[2024-04-30] MEDS: MELATONIN 5 MG TABLET PO SCH (20:52)
[2024-05-01] VITALS (12 sets, daily range): BP systolic 124–147; BP diastolic 82–91; PULSE 67–96; RESP 18–20; TEMP 97.4–98.1; O2SAT 96–100
[2024-05-01] MEDS: AMLODIPINE BESYLATE 10 MG TAB PO SCH (09:31)
[2024-05-01] MEDS: PREDNISONE 20 MG TAB PO SCH (09:32)
[2024-05-01] MEDS: TRIAMCINOLONE ACET 40 MG/ML VIAL IM ONE (11:41)
[2024-05-02] VITALS (8 sets, daily range): BP systolic 127–155; BP diastolic 88–97; PULSE 65–72; RESP 18–20; TEMP 97.7–98.1; O2SAT 95–99
[2024-05-02 08:21] LABS: BASOPHILS % 0.1 % (0.0-1.0); EOSINOPHILS % 0.1 % (0.0-6.0); HEMATOCRIT 40.8 % (38.2-49.6); HEMOGLOBIN 13.5 g/dL (14.0-18.0); MEAN CORPUSCULAR HEMOGLOBIN 31.7 pg (28-32); MEAN CORPUSCULAR HGB CONC 33.1 g/dL (31-35); MEAN CORPUSCULAR VOLUME 95.8 fL (81-99); MONOCYTES # (AUTO) 0.6 (0.2-0.8); MONOCYTES % 5.8 % (4.4-11.3); NEUTROPHILS # (AUTO) 8.3 (2.1-6.9); NEUTROPHILS % 75.5 % (38.7-80.0); PLATELET COUNT 167 x10e3/uL (140-360); RED BLOOD COUNT 4.26 x10e6/uL (4.3-5.7); RED CELL DISTRIBUTION WIDTH 12.9 % (11.7-14.4); WHITE BLOOD COUNT 11.04 x10e3/uL (4.8-10.8)
[2024-05-02 08:59] LABS: ANION GAP 13.3 mmol/L (8-16); CALCIUM 9.1 mg/dL (8.4-10.2); CREATININE, SERUM 0.79 mg/dL (0.72-1.25)
[2024-05-02 09:02] LABS: POTASSIUM 3.3 mmol/L (3.5-5.1)
== END 2024-05-02 12:37 | disposition home or self-care (01) | DRG 190 ==
LOC: ER 19:23 → ERHOLD 21:04 → MED/SURG3 22:11 → OBSVTOIN 04-30 10:41
PROVIDERS: ADMIT Internal Medicine; ATTEND Internal Medicine
DX: J44.1 Chronic obstructive pulmonary disease with (acute) exacerbation (principal); J96.01 Acute respiratory failure with hypoxia; J21.9 Acute bronchiolitis, unspecified; F41.0 Panic disorder [episodic paroxysmal anxiety]; I10 Essential (primary) hypertension; E11.9 Type 2 diabetes mellitus without complications; I48.91 Unspecified atrial fibrillation; K76.9 Liver disease, unspecified; I49.9 Cardiac arrhythmia, unspecified; F31.9 Bipolar disorder, unspecified; M54.9 Dorsalgia, unspecified; G47.00 Insomnia, unspecified; F10.10 Alcohol abuse, uncomplicated; Z79.52 Long term (current) use of systemic steroids; Z79.51 Long term (current) use of inhaled steroids; Z85.820 Personal history of malignant melanoma of skin; Z87.891 Personal history of nicotine dependence; E66.01 Morbid (severe) obesity due to excess calories; Z68.31 Body mass index [BMI] 31.0-31.9, adult
CPT/HCPCS: 36415; 71045; 71260; 80048; 80053; 80061; 80320; 81001; 82550; 83036; 83690; 83735; 83880; 84443; 84484; 85025; 87040; 93005; 93306; 94640; 94799; 99284; G0378; J0360; J0696; J2060; J2919; J3301; J7030; J7050; J7512; Q0177; Q9967

== ENCOUNTER 2024-08-12 09:34 | Inpatient (IN) | payer MEDICARE, OTHER ==
[2024-08-12] VITALS (9 sets, daily range): BP systolic 155–180; BP diastolic 85–116; PULSE 64–88; RESP 16–20; TEMP 98–98.9; O2SAT 96–100
[~2024-08-12] VITALS: Ht 182.9 cm; Wt 104.5 kg
[2024-08-12 10:52] LABS: BASOPHILS % 0.6 % (0.0-1.0); EOSINOPHILS % 0.6 % (0.0-6.0); HEMATOCRIT 35.4 % (38.2-49.6); HEMOGLOBIN 12.2 g/dL (14.0-18.0); LYMPHOCYTES # (AUTO) 0.9 (1.0-3.2); LYMPHOCYTES % 13.7 % (18.0-39.1); MEAN CORPUSCULAR HEMOGLOBIN 31.9 pg (28-32); MEAN CORPUSCULAR HGB CONC 34.5 g/dL (31-35); MEAN CORPUSCULAR VOLUME 92.7 fL (81-99); MONOCYTES # (AUTO) 0.6 (0.2-0.8); MONOCYTES % 8.5 % (4.4-11.3); NEUTROPHILS % 76.1 % (38.7-80.0); PLATELET COUNT 204 x10e3/uL (140-360); RED BLOOD COUNT 3.82 x10e6/uL (4.3-5.7); RED CELL DISTRIBUTION WIDTH 13.6 % (11.7-14.4); WHITE BLOOD COUNT 6.55 x10e3/uL (4.8-10.8)
[2024-08-12 11:17] LABS: CLARITY,URINE CLOUDY (CLEAR); COLOR,URINE YELLOW (YELLOW); GLUCOSE, URINE NEGATIVE (NEGATIVE); LEUKOCYTE ESTERASE ,URINE NEGATIVE (NEGATIVE); NITRITE,URINE NEGATIVE (NEGATIVE); PH,URINE 6.5 (5 - 7); PROTEIN,URINE DIPSTICK NEGATIVE (NEGATIVE)
[2024-08-12 11:18] LABS: BILIRUBIN,URINE NEGATIVE (NEGATIVE); KETONES,URINE NEGATIVE (NEGATIVE); URINE UROBILINOGEN 0.2 mg/dL (0.2 - 1)
[2024-08-12 11:20] LABS: ALBUMIN 3.5 g/dL (3.5-5.0); ALBUMIN/GLOBULIN RATIO 1.3 (0.8-2.0); ANION GAP 18.7 mmol/L (8-16); BILIRUBIN,TOTAL 0.9 mg/dL (0.2-1.2); CREATININE, SERUM 0.8 mg/dL (0.72-1.25); TOTAL PROTEIN 6.1 g/dL (6.5-8.1)
[2024-08-12 11:21] LABS: POTASSIUM 2.7 mmol/L (3.5-5.1)
[2024-08-12 11:24] LABS: BACTERIA,URINE MODERATE /HPF; EPITHELIAL CELLS,URINE FEW /LPF; RBC,URINE 0-5 /HPF (0-5)
[2024-08-12 11:34] LABS: CREATINE KINASE 207 IU/L (30-200); LIPASE 19 U/L (8-78)
[2024-08-12] MEDS ORDERED: SODIUM CHLORIDE 0.9% 500ML 500 ML ONE (11:39)
[2024-08-12] MEDS: POTASSIUM CHLORIDE 20 MEQ TAB CR PO STA (11:44)
[2024-08-12] MEDS: POTASSIUM CHLORIDE 20MEQ/100ML 100 ML IV SCH (11:45)
[2024-08-12 12:08] LABS: ETHANOL < 10.0 mg/dL (0.0-10.0)
[2024-08-12] MEDS ORDERED: ONDANSETRON HCL INJ 2MG/ML 2ML 2 MG/ML VIAL IV PRN (13:30)
[2024-08-12] MEDS ORDERED: SODIUM CHLORIDE FLUSH 10 ML SYR INJ PRN (13:30)
[2024-08-12] MEDS: CALCIUM GLUC 1 G/50 ML NACL 100 ML IV ONE (14:12)
[2024-08-12] MEDS: ALBUTEROL/IPRATROPIUM 3 ML NEB NEB PRN (19:12)
[2024-08-12] MEDS ORDERED: BUSPIRONE HCL7.5 MG PO (21:34)
[2024-08-12] MEDS ORDERED: METOPROLOL SUCC25 MG PO (21:42)
[2024-08-13] VITALS (10 sets, daily range): BP systolic 141–162; BP diastolic 94–109; PULSE 67–94; RESP 18–20; TEMP 98.1–98.7; O2SAT 95–100
[2024-08-13] MEDS ORDERED: DICYCLOMINE HCL 20 MG TAB PO PRN (05:30)
[2024-08-13] MEDS ORDERED: BENZONATATE 100 MG CAP PO PRN (05:30)
[2024-08-13] MEDS ORDERED: ACETAMINOPHEN 325 MG TAB PO PRN (05:30)
[2024-08-13] MEDS ORDERED: HYDROXYZINE PAMOATE 25 MG CAP PO PRN (05:30)
[2024-08-13 05:54] LABS: BASOPHILS % 0.7 % (0.0-1.0); EOSINOPHILS # (AUTO) 0.1 (0.0-0.4); EOSINOPHILS % 1.9 % (0.0-6.0); HEMATOCRIT 33.2 % (38.2-49.6); HEMOGLOBIN 11.5 g/dL (14.0-18.0); LYMPHOCYTES # (AUTO) 1.7 (1.0-3.2); LYMPHOCYTES % 30.7 % (18.0-39.1); MEAN CORPUSCULAR HEMOGLOBIN 31.8 pg (28-32); MEAN CORPUSCULAR HGB CONC 34.6 g/dL (31-35); MEAN CORPUSCULAR VOLUME 91.7 fL (81-99); MONOCYTES # (AUTO) 0.5 (0.2-0.8); MONOCYTES % 8.7 % (4.4-11.3); NEUTROPHILS # (AUTO) 3.3 (2.1-6.9); NEUTROPHILS % 57.5 % (38.7-80.0); PLATELET COUNT 181 x10e3/uL (140-360); RED BLOOD COUNT 3.62 x10e6/uL (4.3-5.7); RED CELL DISTRIBUTION WIDTH 13.7 % (11.7-14.4); WHITE BLOOD COUNT 5.66 x10e3/uL (4.8-10.8)
[2024-08-13 06:24] LABS: ALBUMIN 3.2 g/dL (3.5-5.0); ALBUMIN/GLOBULIN RATIO 1.2 (0.8-2.0); CREATININE, SERUM 0.76 mg/dL (0.72-1.25); TOTAL PROTEIN 5.9 g/dL (6.5-8.1)
[2024-08-13 06:30] LABS: CALCIUM 6.9 mg/dL (8.4-10.2)
[2024-08-13] MEDS: SOD CHL 0.45%/POT CHL 20MEQ 1,000 ML IV SCH (06:35)
[2024-08-13] MEDS: CHLORDIAZEPOXIDE HCL 10 MG CAP PO SCH (06:35)
[2024-08-13] MEDS: POTASSIUM CHLORIDE 10MEQ EA PO PRN (06:54)
[2024-08-13] MEDS: BUPROPION HCL 150 MG TABCR PO SCH (08:42)
[2024-08-13] MEDS: PREGABALIN 50 MG CAP PO SCH (08:43)
[2024-08-13] MEDS: FENOFIBRATE 145 MG TAB PO SCH (08:43)
[2024-08-13] MEDS: PANTOPRAZOLE SOD 40 MG TABEC PO SCH (08:43)
[2024-08-13] MEDS: METOPROLOL SUCCINATE 25 MG TAB XL PO SCH (08:44)
[2024-08-13] MEDS: CALCIUM GLUC 1 G/50 ML NACL 50 ML IV ONE (08:53)
[2024-08-13 09:22] LABS: MAGNESIUM < 0.6 MG/DL (1.3-2.1)
[2024-08-13 09:23] LABS: PHOSPHORUS 2.9 MG/DL (2.3-4.7)
[2024-08-13] MEDS: MAGNESIUM SULFATE 2GM/50ML 50 ML IV PRN (10:36)
[2024-08-13] MEDS: HYDRALAZINE HCL 20 MG/ML VIAL IV PRN (18:21)
[2024-08-13] MEDS: DIAZEPAM 5 MG TAB PO PRN (19:10)
[2024-08-13] MEDS: TAMSULOSIN HCL 0.4 MG CAP PO SCH (21:09)
[2024-08-13] MEDS: ZOLPIDEM TARTRATE 5 MG TAB PO PRN (23:10)
[2024-08-14] VITALS (8 sets, daily range): BP systolic 143–168; BP diastolic 99–108; PULSE 81–104; RESP 18–20; TEMP 98.1–100.2; O2SAT 95–99
[2024-08-14 06:48] LABS: BASOPHILS % 0.3 % (0.0-1.0); EOSINOPHILS # (AUTO) 0.1 (0.0-0.4); EOSINOPHILS % 1.7 % (0.0-6.0); HEMATOCRIT 36.4 % (38.2-49.6); LYMPHOCYTES # (AUTO) 0.9 (1.0-3.2); LYMPHOCYTES % 13.4 % (18.0-39.1); MEAN CORPUSCULAR HEMOGLOBIN 31.6 pg (28-32); MEAN CORPUSCULAR VOLUME 95.8 fL (81-99); MONOCYTES # (AUTO) 0.3 (0.2-0.8); MONOCYTES % 4.4 % (4.4-11.3); NEUTROPHILS # (AUTO) 5.6 (2.1-6.9); NEUTROPHILS % 79.5 % (38.7-80.0); PLATELET COUNT 169 x10e3/uL (140-360); RED CELL DISTRIBUTION WIDTH 14.2 % (11.7-14.4); WHITE BLOOD COUNT 7.01 x10e3/uL (4.8-10.8)
[2024-08-14 07:23] LABS: ANION GAP 19.1 mmol/L (8-16); CALCIUM 7.1 mg/dL (8.4-10.2); CREATININE, SERUM 0.71 mg/dL (0.72-1.25); PHOSPHORUS 3.1 MG/DL (2.3-4.7)
[2024-08-14 07:25] LABS: MAGNESIUM 0.8 MG/DL (1.3-2.1); POTASSIUM 3.1 mmol/L (3.5-5.1)
[2024-08-14] MEDS ORDERED: MAGNESIUM SULFATE 2GM/50ML IV ONE (13:15)
[2024-08-14] MEDS: MAGNESIUM SULFATE 2GM/50ML 100 ML IV ONE (13:45)
[2024-08-14] MEDS: POTASSIUM CHLORIDE 20 MEQ TAB CR PO ONE (13:45)
== END 2024-08-14 16:10 | disposition home or self-care (01) | DRG 897 ==
LOC: ER 10:56 → ERHOLD 13:32 → MED/SURG2 15:37
PROVIDERS: ADMIT Internal Medicine; ATTEND Internal Medicine
DX: F10.239 Alcohol dependence with withdrawal, unspecified (principal); N39.0 Urinary tract infection, site not specified; E83.51 Hypocalcemia; K70.30 Alcoholic cirrhosis of liver without ascites; N41.9 Inflammatory disease of prostate, unspecified; J44.9 Chronic obstructive pulmonary disease, unspecified; F41.0 Panic disorder [episodic paroxysmal anxiety]; I10 Essential (primary) hypertension; I48.91 Unspecified atrial fibrillation; M54.9 Dorsalgia, unspecified; E87.6 Hypokalemia; E83.42 Hypomagnesemia; Z79.51 Long term (current) use of inhaled steroids; Z87.891 Personal history of nicotine dependence
CPT/HCPCS: 36415; 80048; 80053; 80320; 81001; 82550; 83690; 83735; 84100; 85025; 87086; 93005; 94640; 94799; 99284; J0360; J0696; J2470; J3475; J3480; J7040; Q0177

== ENCOUNTER 2024-09-23 07:45 | Emergency (ER) | payer MEDICARE ==
[~2024-09-23] VITALS: Ht 182.9 cm; Wt 104.3 kg
[~2024-09-23 07:45] MED LIST changes: +BUSPIRONE HCL7.5 MG PO; +METOPROLOL SUCC25 MG PO
[2024-09-23 07:48] VITALS: PULSE 83; RESP 16; TEMP 98.1
[2024-09-23 08:45] LABS: BASOPHILS # (AUTO) 0.1 (0.0-0.1); EOSINOPHILS # (AUTO) 0.1 (0.0-0.4); EOSINOPHILS % 1.3 % (0.0-6.0); HEMATOCRIT 44.3 % (38.2-49.6); HEMOGLOBIN 15.6 g/dL (14.0-18.0); LYMPHOCYTES # (AUTO) 2.7 (1.0-3.2); LYMPHOCYTES % 42.9 % (18.0-39.1); MEAN CORPUSCULAR HEMOGLOBIN 31.5 pg (28-32); MEAN CORPUSCULAR HGB CONC 35.2 g/dL (31-35); MEAN CORPUSCULAR VOLUME 89.3 fL (81-99); MONOCYTES # (AUTO) 0.3 (0.2-0.8); MONOCYTES % 5.5 % (4.4-11.3); NEUTROPHILS % 49.3 % (38.7-80.0); PLATELET COUNT 305 x10e3/uL (140-360); RED BLOOD COUNT 4.96 x10e6/uL (4.3-5.7); WHITE BLOOD COUNT 6.17 x10e3/uL (4.8-10.8)
[2024-09-23 09:09] LABS: BACTERIA,URINE RARE /HPF; BILIRUBIN,URINE NEGATIVE (NEGATIVE); CLARITY,URINE CLEAR (CLEAR); COLOR,URINE YELLOW (YELLOW); EPITHELIAL CELLS,URINE RARE /LPF; GLUCOSE, URINE NEGATIVE (NEGATIVE); KETONES,URINE NEGATIVE (NEGATIVE); LEUKOCYTE ESTERASE ,URINE NEGATIVE (NEGATIVE); NITRITE,URINE NEGATIVE (NEGATIVE); PH,URINE 6 (5 - 7); PROTEIN,URINE DIPSTICK NEGATIVE (NEGATIVE); RBC,URINE 0-5 /HPF (0-5); URINE UROBILINOGEN 0.2 mg/dL (0.2 - 1); WBC,URINE (MAN) 0-5 /HPF (0-5)
[2024-09-23 09:11] LABS: ALBUMIN/GLOBULIN RATIO 1.2 (0.8-2.0); ANION GAP 21.9 mmol/L (8-16); BILIRUBIN,TOTAL 0.4 mg/dL (0.2-1.2); CALCIUM 9.2 mg/dL (8.4-10.2); CREATININE, SERUM 0.82 mg/dL (0.72-1.25); MAGNESIUM 1.8 MG/DL (1.3-2.1); POTASSIUM 3.9 mmol/L (3.5-5.1); TOTAL PROTEIN 7.3 g/dL (6.5-8.1)
[2024-09-23 09:17] LABS: TROPONIN I 0.009 ng/mL (0-0.300)
[2024-09-23] MEDS ORDERED: ONDANSETRON ODT4 MG PO (09:31)
[2024-09-23 09:41] VITALS: BP 153/104; PULSE 70; RESP 18; TEMP 96.6; O2SAT 99
== END 2024-09-23 09:44 | disposition home or self-care (01) ==
LOC: ER 07:50
DX: R05.9 Cough, unspecified (principal); R09.89 Other specified symptoms and signs involving the circulatory and respiratory systems; R11.0 Nausea; R53.81 Other malaise; J44.9 Chronic obstructive pulmonary disease, unspecified; F10.10 Alcohol abuse, uncomplicated; G47.00 Insomnia, unspecified; I10 Essential (primary) hypertension; I48.91 Unspecified atrial fibrillation; K76.9 Liver disease, unspecified; F41.9 Anxiety disorder, unspecified
CPT/HCPCS: 36415; 71045; 80053; 81001; 83735; 84484; 85025; 87086; 99284

== ENCOUNTER 2024-11-09 18:38 | Emergency (ER) | payer MEDICARE ==
[~2024-11-09] VITALS: Ht 182.9 cm; Wt 104.3 kg
[~2024-11-09 18:38] MED LIST changes: +ONDANSETRON ODT4 MG PO
[2024-11-09 18:46] VITALS: TEMP 98.5
[2024-11-09 19:53] VITALS: PULSE 81; RESP 15
[2024-11-09 20:03] LABS: BASOPHILS # (AUTO) 0.1 (0.0-0.1); BASOPHILS % 0.5 % (0.0-1.0); EOSINOPHILS # (AUTO) 0.1 (0.0-0.4); EOSINOPHILS % 0.6 % (0.0-6.0); HEMATOCRIT 36.6 % (38.2-49.6); HEMOGLOBIN 12.4 g/dL (14.0-18.0); LYMPHOCYTES # (AUTO) 1.5 (1.0-3.2); LYMPHOCYTES % 14.4 % (18.0-39.1); MEAN CORPUSCULAR HEMOGLOBIN 31.6 pg (28-32); MEAN CORPUSCULAR HGB CONC 33.9 g/dL (31-35); MEAN CORPUSCULAR VOLUME 93.1 fL (81-99); MONOCYTES # (AUTO) 0.7 (0.2-0.8); MONOCYTES % 6.9 % (4.4-11.3); NEUTROPHILS # (AUTO) 8.1 (2.1-6.9); NEUTROPHILS % 76.9 % (38.7-80.0); PLATELET COUNT 257 x10e3/uL (140-360); RED BLOOD COUNT 3.93 x10e6/uL (4.3-5.7); WHITE BLOOD COUNT 10.46 x10e3/uL (4.8-10.8)
[2024-11-09] MEDS: LEVETIRACETAM 500MG/5ML VIAL 1,000 MG in SODIUM CHLORIDE 0.9% 100 ML IV STA (20:14)
[2024-11-09] MEDS: DIAZEPAM INJ 5 MG/ML 2 ML IV STA (20:14)
[2024-11-09 20:25] LABS: ALBUMIN 3.4 g/dL (3.5-5.0); ANION GAP 18.2 mmol/L (8-16); BILIRUBIN,TOTAL 0.6 mg/dL (0.2-1.2); CALCIUM 7.3 mg/dL (8.4-10.2); CREATININE, SERUM 1.06 mg/dL (0.72-1.25); TOTAL PROTEIN 6.8 g/dL (6.5-8.1)
[2024-11-09 20:28] LABS: ETHANOL < 10.0 mg/dL (0.0-10.0); LIPASE 41 U/L (8-78); POTASSIUM 3.2 mmol/L (3.5-5.1)
[2024-11-09 20:31] LABS: TROPONIN I 0.011 ng/mL (0-0.300)
[2024-11-09] MEDS ORDERED: KEPPRA500 MG PO (21:00)
[2024-11-09] MEDS ORDERED: CHLORDIAZEPOXID25 MG PO (21:00)
[2024-11-09 21:26] VITALS: BP 143/96; PULSE 81; RESP 16; TEMP 98.4; O2SAT 96
== END 2024-11-09 21:33 | disposition home or self-care (01) ==
LOC: ER 18:51
DX: S01.512A Laceration without foreign body of oral cavity, initial encounter (principal); R56.9 Unspecified convulsions; I10 Essential (primary) hypertension; J44.9 Chronic obstructive pulmonary disease, unspecified; K76.9 Liver disease, unspecified; K21.9 Gastro-esophageal reflux disease without esophagitis; F41.9 Anxiety disorder, unspecified; R94.31 Abnormal electrocardiogram [ECG] [EKG]
CPT/HCPCS: 36415; 70450; 71045; 80053; 80320; 82550; 83690; 83880; 84484; 85025; 93005; 99284; J1953; J3360; J7050